=== PATIENT | male | born 1945 | race Caucasian/White ===

== ENCOUNTER 2018-10-08 16:46 | Observation (INO) ==
[2018-10-08 17:12] LABS: Hematocrit 38.7 % (42.0-52.0); Hemoglobin 11.4 gm/dL (13.5-18.0); Mean Cell Volume 93.7 fl (78-100); Mean Corpuscular Hemoglobin 27.6 pg (27-31); Mean Corpuscular Hgb Conc 29.5 g/dl (32-36); Mean Platelet Volume 11.5 fl (8-11.3); Neutrophil # 4.6 K/mm3 (1.3-6.0); Neutrophil % 61.1 % (42-75.0); Platelet Count 180 K/mm3 (150-450); Red Blood Count 4.13 M/mm3 (4.7-6.0); Red Cell Distribution Width 16.5 % (11.5-14.0); White Blood Count 7.6 K/mm3 (4.0-10.5)
[2018-10-08] MEDS ORDERED: FUROSEMIDE 10 MG/ML VIAL IV ONE (17:14)
[2018-10-08 17:31] LABS: BUN/Creatinine Ratio 27.6 (9.0-21.6); Blood Urea Nitrogen 45 mg/dL (6-23); Carbon Dioxide 26.4 mmol/L (24-32.6); Chloride 107 mmol/L (97-106); Glucose * 108 mg/dL (70-110); Potassium 4.4 mmol/L (3.4-4.6); Sodium 142 mmol/L (132-142)
[2018-10-08 17:32] LABS: ALT 69 U/L (19-67); AST 60 U/L (0-48); Albumin * 3.2 gm/dl (3.4-5.0); Alkaline Phosphatase * 81 U/L (50-170); BNP * 2273 pg/mL (5-350); Bilirubin, Total 0.4 mg/dL (0.0-1.1); Ca. Corrected For Albumin 9.2 mg/dL (8.4-10.2); Calcium * 8.9 mg/dL (7.9-10.9); Total Protein 6.5 gm/dL (6.2-8.2); Troponin I Less than 0.017 ng/mL (0.00-0.10)
--- NOTE | 2018-10-08 17:58 | ERNOTE ---
Dyspnea - General Presenting Symptoms: shortness of breath, wheezing, other Time Seen by Provider: 10/08/18 17:10 Source: patient - And about a 15 pound weight gain, family Exam Limitations: no limitations - Immun/Allergies/Home Medications Immunizations: IMMUNIZATION HX Immunizations Up to Date Yes History of Influenza Vaccine Yes Hx Pneumococcal Vaccination Yes Allergies/Adverse Reactions: Allergies No Known Drug Allergies Allergy (Verified 10/08/18 16:56) Home Medications: HOME MEDICATIONS Aspirin [Aspirin Enteric Coated] 81 mg PO DAILY 03/12/16 [Last Taken Unknown] amLODIPine BESYLATE [Norvasc] 5 mg PO DAILY 03/12/16 [Last Taken Unknown] atenolol 50 mg tablet 50 mg PO DAILY #90 tab 08/22/18 [Last Taken Unknown] clopidogrel 75 mg tablet 75 mg PO DAILY #90 tab 09/20/18 [Last Taken Unknown] losartan 100 mg tablet 100 mg PO DAILY #90 tab 09/20/18 [Last Taken Unknown] Furosemide [Lasix] 80 mg PO DAILY 10/05/18 [Last Taken Unknown] Rosuvastatin Calcium [Crestor] 40 mg PO HS 10/05/18 [Last Taken Unknown] - History of Present Illness Narrative: Patient was seen here 3 days ago appeared to be CHF and weight gain. His Lasix was increased at home however it did not help at all in his continuing to put on weight and is more short of breath and cannot lie flat. Despite aggressive treatment at home he has failed outpatient treatment. 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 Initiating event: Reports: none Frequency of episodes: Reports: occassional episodes Modifying Factors - (Improves): Reports: nothing Modifying Factors (Worsens): Reports: activity, lying down Associated Symptoms-Dyspnea: Reports: ankle/leg swelling Prior Treatment: Reports: recently seen, treated by physician Review of Systems - Review of Systems Constitutional: Present: See HPI EYE: Present: no symptoms reported ENT: Present: no symptoms reported Respiratory: Present: See HPI Cardiology: Present: edema Gastrointestinal/Abdominal: Present: no symptoms reported Genitourinary: Present: no symptoms reported Musculoskeletal: Present: no symptoms reported Skin: Present: no symptoms reported Neurological: Present: no symptoms reported Endocrine: Present: no symptoms reported Hematologic/Lymphatic: Present: no symptoms reported Psych: Present: no symptoms reported All Other Systems: All systems neg except as marked Medical History (Updated 10/05/18 @ 10:17 by Lyssa Ruiz MD) Aortic aneurysm CAD (coronary artery disease) CHF (congestive heart failure) COPD (chronic obstructive pulmonary disease) Hypercholesteremia Hypertension PAD (peripheral artery disease) Surgical History: Surgical History (Updated 10/05/18 @ 09:29 by Tonya Maria, RONDA) History of cardiac catheterization history of stent placement right leg Family History: Family History (Updated 10/08/18 @ 16:57 by Estela Wilkins, RONDA) Other No pertinent family history Social History: Preferred Language Tanzanian Smoking Status Never smoker Abuse History No History of abuse Psych History No pertinent hx (Last Updated 08/17/18 @ 20:52 by Maxim Marion DO) No Social History Section defined Physical Exam - Physical Exam General Appearance: Present: wd/wn, alert, moderate distress Head Exam: Present: normal inspection, no evidence of injury Eye Exam: Normal inspection: bilateral, PERRL: bilateral Ears, Nose, Throat: Present: normal ENT inspection, H, normal pharynx Neck: Present: normal inspection, nontender Respiratory: Present: no accessory muscle use, chest nontender, respiratory distress, crackles - In the bases Cardiovascular/Chest: Present: regular rate, rhythm, no murmur, normal per ipheral pulses Gastrointestinal/Abdominal: Present: normal bowel sounds, nontender, nondistended, soft, no organomegaly Rectal Exam: Present: deferred Back Exam: Present: normal inspection, normal range of motion Extremity Exam: Present: normal inspection, non-tender, normal range of motion, extremity edema, other - Presacral edema Neurological Exam: Present: alert, oriented, normal mood/affect Skin Exam: Present: normal color, warm/dry Lymphatic Exam: Present: no adenopathy Progress - Results and Orders Patient's Lab Results:: I have reviewed the patient's lab results. - Vital Signs Patient's Vital Signs:: I have reviewed the patient's vital signs. Vital Signs: Vital Signs 10/08/18 16:53 10/08/18 16:59 10/08/18 17:23 Temperature 37.1 C Pulse Rate 66 66 60 Respiratory Rate 20 Blood Pressure 136/55 129/54 O2 Sat by Pulse Oximetry 92 L - EKG EKG #1 EKG: NSR EKG read: Reviewed by me - X-Ray X-Ray #1 X-Ray: chest Interpretation: Reviewed by me - Progress/Reassessment Chief Complaint: Dyspnea Plan - Plan Plan: Patient is failed outpatient treatment and I believe he needs to come in for more aggressive IV diuresis. It is entirely possible that the Lasix is not working as well as it has in the past. I did give him an additional 80 mg of Lasix IV to see if we can stimulate more diuresis. Given the 15 pound weight gain we might even consider Zaroxolyn on the floor, however I will leave that to the discretion of the family practice doctor. Departure Clinical Impression: Congestive heart failure Qualifiers: Heart failure type: unspecified Heart failure chronicity: acute on chronic Qualified Code(s): I50.9 - Heart failure, unspecified - Departure Disposition: Still a patient Condition: Fair Referrals: Maxim Marion DO [Primary Care Provider] -
[2018-10-08] MEDS ORDERED: ENOXAPARIN SODIUM 40 MG/0.4 ML SYRG SC SCH (21:45)
--- NOTE | 2018-10-08 21:56 | HP ---
Chief Complaint - Chief Complaint Date of Service: 10/08/18 Time of Service: 21:00 Chief Complaint: Shortness of breath, orthopnea, hypoxemia History of Present Illness: Mr. Chow has been having fluid retention problems. He was started on f urosemide 40 mg p.o. but continued to gain fluid weight and became very dyspneic this evening and could not lie down because of shortness of breath. He came to the emergency room was evaluated and found to be in congestive heart failure. He was diuresed with 80 mg of furosemide IV and he has unloaded a lot of fluid. He is now breathing comfortably and is able to lie down without being short of breath. The head of his bed is raised about 15degrees. He otherwise is in no distress. His laboratory work shows an elevated BNP. Chest x-ray shows pulmonary vascular edema. He is admitted for further IV diuresis. Medical History (Updated 10/08/18 @ 17:58 by Pramod Robison DO) CHF (congestive heart failure) Aortic aneurysm CAD (coronary artery disease) COPD (chronic obstructive pulmonary disease) Hypercholesteremia Hypertension PAD (peripheral artery disease) Surgical History: Surgical History (Updated 10/05/18 @ 09:29 by Tonya Maria RN) History of cardiac catheterization history of stent placement right leg Family History: Family History (Updated 10/08/18 @ 16:57 by Estela Wilkins RN) Other No pertinent family history Social History: Patient Lives/Resources With Spouse Utilized Occupation [employer] Preferred Language [place] Do you have any orthodoxy or No cultural preference? Smoking Status Never smoker Have you smoked in the past 12 No months Do you dip or chew tobacco No Abuse History No History of abuse Psych History No pertinent hx (Last Updated 08/17/18 @ 20:52 by Maxim Marion DO) No Social History Section defined Review Of Systems (GEN) - Review of Systems Generalized/Overall Review: Present: Malaise EENTM: Present: No Symptoms Reported Respiratory: Present: Shortness of Breath, Orthopnea, Wheezing Cardiac: Present: No Symptoms Reported, Edema Abdominal: Present: Other - Increased abdominal girth Genitourinary: Present: No Symptoms Reported Musculoskeletal: Present: No Symptoms Reported Neurological: Present: No Symptoms Reported Skin: Present: No Symptoms Reported Endocrine: Present: No Symptoms Reported Immunizations: IMMUNIZATION HX Immunizations Up to Date Yes History of Influenza Vaccine Yes Hx Pneumococcal Vaccination Yes Allergies/Adverse Reactions: Allergies Allergy/AdvReac Type Severity Reaction Status Date / Time No Known Drug Allergies Allergy Verified 10/08/18 16:56 Home Medications: HOME MEDICATIONS Aspirin [Aspirin Enteric Coated] 81 mg PO DAILY 03/12/16 [Last Taken Unknown] amLODIPine BESYLATE [Norvasc] 5 mg PO DAILY 03/12/16 [Last Taken Unknown] atenolol 50 mg tablet 50 mg PO DAILY #90 tab 08/22/18 [Last Taken Unknown] clopidogrel 75 mg tablet 75 mg PO DAILY #90 tab 09/20/18 [Last Taken Unknown] losartan 100 mg tablet 100 mg PO DAILY #90 tab 09/20/18 [Last Taken Unknown] Furosemide [Lasix] 80 mg PO DAILY 10/05/18 [Last Taken Unknown] Rosuvastatin Calcium [Crestor] 40 mg PO HS 10/05/18 [Last Taken Unknown] Exam - Exam Vital Signs: Vital Signs - Last Taken Temp 36.4 C 10/08/18 19:12 Pulse 62 10/08/18 19:12 Resp 15 10/08/18 19:12 BP 148/55 10/08/18 19:12 Pulse Ox 95 10/08/18 19:12 Constitutional: Present: Alert, Oriented x3, Cooperative, Well developed, Well nourished, No distress ENT Exam: Present: normal ENT inspection, hearing grossly normal, pharynx normal, TMs normal Eye Exam: bilateral eye: normal inspection, PERRL, EOMI Neck: Present: non-tender, full range of motion, supple, other - Distended neck veins Back Exam: Present: normal inspection Breasts: Present: Exam deferred, Nontender Respiratory: Present: chest non-tender, rales, wheezing Cardiovascular/Chest: Present: normal peripheral pulses, regular rate, rhythm, no chest tenderness, JVD, systolic murmur - This is a low pitched grade 5/6 crescendo murmur consistent with mitral insufficiency., edema Peripheral Pulses: carotid (R): 2+, carotid (L): 2+, radial (R): 2+, radial (L): 2+ Abdomen: Present: Normal bowel sounds, soft, nontender /Rectal: Present: Exam deferred Extremity: Present: normal range of motion, lower extremity edema, swelling Skin Exam: Present: normal color, warm/dry, no cyanosis Lymphatic: Present: no adenopathy 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 Appearance: Present: appropriate appearance, appropriate insight, neat, no memory impairment Eye contact: Present: cooperative, good eye contact, normal speech Thoughts: Present: normal thought pattern, no apparent hallucination Diagnostic Studies: Abnormal Lab Results 10/08/18 10/08/18 Range/Units 17:06 17:06 RBC 4.13 L (4.7-6.0) M/mm3 Hgb 11.4 L (13.5-18.0) gm/dL Hct 38.7 L (42.0-52.0) % MCHC 29.5 L (32-36) g/dl RDW 16.5 H (11.5-14.0) % MPV 11.5 H (8-11.3) fl Eosinophils % 8.1 H (0.0-3.0) % Chloride 107 H (97-106) mmol/L BUN 45 H (6-23) mg/dL Creatinine 1.63 H (0.4-1.4) mg/dL Est GFR (Non-Af Amer) 44 L (60-130) mL/min BUN/Creatinine Ratio 27.6 H (9.0-21.6) AST 60 H (0-48) U/L ALT 69 H (19-67) U/L B-Natriuretic Peptide 2273 H (5-350) pg/mL Albumin 3.2 L (3.4-5.0) gm/dl Laboratory Results WBC 7.6 K/mm3 (4.0-10.5) 10/08/18 17:06 RBC 4.13 M/mm3 (4.7-6.0) L 10/08/18 17:06 Hgb 11.4 gm/dL (13.5-18.0) L 10/08/18 17:06 Hct 38.7 % (42.0-52.0) L 10/08/18 17:06 MCV 93.7 fl (78-100) 10/08/18 17:06 MCH 27.6 pg (27-31) 10/08/18 17:06 MCHC 29.5 g/dl (32-36) L 10/08/18 17:06 RDW 16.5 % (11.5-14.0) H 10/08/18 17:06 Plt Count 180 K/mm3 (150-450) 10/08/18 17:06 MPV 11.5 fl (8-11.3) H 10/08/18 17:06 Immature Gran % (Auto) 0.10 % (0.001-0.429) 10/08/18 17:06 Immature Gran # (Auto) 0.01 K/mm3 (0.000-0.0310) 10/08/18 17:06 61.1 % (42-75.0) 10/08/18 17:06 21.8 % (20-51) 10/08/18 17:06 8.4 % (0.0-9) 10/08/18 17:06 8.1 % (0.0-3.0) H 10/08/18 17:06 0.5 % (0.0-1.0) 10/08/18 17:06 Nucleated RBC % 0.0 k/mm3 (0-1) 10/08/18 17:06 4.6 K/mm3 (1.3-6.0) 10/08/18 17:06 1.66 k/mm3 (1.5-3.5) 10/08/18 17:06 0.6 k/mm3 (0.0-1.0) 10/08/18 17:06 0.6 k/mm3 (0.0-0.7) 10/08/18 17:06 Absolute Basophils 0.0 k/mm3 (0.0-0.1) 10/08/18 17:06 Sodium 142 mmol/L (132-142) 10/08/18 17:06 142 mmol/L (130-142) 10/08/18 17:06 Potassium 4.4 mmol/L (3.4-4.6) 10/08/18 17:06 Chloride 107 mmol/L (97-106) H 10/08/18 17:06 Carbon Dioxide 26.4 mmol/L (24-32.6) 10/08/18 17:06 13.0 mmol/L (6.8-13.8) 10/08/18 17:06 BUN 45 mg/dL (6-23) H 10/08/18 17:06 1.63 mg/dL (0.4-1.4) H 10/08/18 17:06 Est GFR (Non-Af Amer) 44 mL/min (60-130) L 10/08/18 17:06 27.6 (9.0-21.6) H 10/08/18 17:06 108 mg/dL (70-110) 10/08/18 17:06 Calcium 8.9 mg/dL (7.9-10.9) 10/08/18 17:06 Calcium Adj for Albumin 9.2 mg/dL (8.4-10.2) 10/08/18 17:06 Magnesium 2.2 mg/dL (1.2-2.8) 10/08/18 17:06 0.4 mg/dL (0.0-1.1) 10/08/18 17:06 AST 60 U/L (0-48) H 10/08/18 17:06 ALT 69 U/L (19-67) H 10/08/18 17:06 81 U/L (50-170) 10/08/18 17:06 Less than 0.017 ng/mL (0.00-0.10) 10/08/18 17:06 B-Natriuretic Peptide 2273 pg/mL (5-350) H 10/08/18 17:06 6.5 gm/dL (6.2-8.2) 10/08/18 17:06 3.2 gm/dl (3.4-5.0) L 10/08/18 17:06 Assessment/Plan - Narrative Narrative: 1. Monitor through the night continuously 2. Furosemide 40 mg IV push at [address] Marion of admission tomorrow morning 4. Morning lab ordered - Assessment/Plan (1) Congestive heart failure Problem: Acute Qualifiers: Heart failure chronicity: acute (2) Heart murmur Problem: Acute (3) COPD (chronic obstructive pulmonary disease) Problem: Chronic Qualifiers: COPD type: unspecified COPD
[2018-10-09] MEDS: FUROSEMIDE 10 MG/ML VIAL IV SCH ×2 (05:22→08:28)
[2018-10-09 06:11] LABS: Hematocrit 38.2 % (42.0-52.0); Hemoglobin 11.6 gm/dL (13.5-18.0); Mean Cell Volume 93.6 fl (78-100); Mean Corpuscular Hemoglobin 28.4 pg (27-31); Mean Corpuscular Hgb Conc 30.4 g/dl (32-36); Mean Platelet Volume 11.5 fl (8-11.3); Neutrophil # 4.5 K/mm3 (1.3-6.0); Neutrophil % 59.8 % (42-75.0); Platelet Count 161 K/mm3 (150-450); Red Blood Count 4.08 M/mm3 (4.7-6.0); Red Cell Distribution Width 16.4 % (11.5-14.0); White Blood Count 7.5 K/mm3 (4.0-10.5)
[2018-10-09 06:25] LABS: Albumin * 3.3 gm/dl (3.4-5.0); Anion Gap 12.4 mmol/L (6.8-13.8); Bilirubin, Total 0.5 mg/dL (0.0-1.1); Ca. Corrected For Albumin 8.9 mg/dL (8.4-10.2); Calcium * 8.7 mg/dL (7.9-10.9); Carbon Dioxide 28.7 mmol/L (24-32.6); Potassium 4.1 mmol/L (3.4-4.6); Total Protein 6.7 gm/dL (6.2-8.2)
[2018-10-09 07:11] LABS: BUN/Creatinine Ratio 29.4 (9.0-21.6)
[2018-10-09] MEDS: LOSARTAN POTASSIUM 50 MG TABLET PO SCH ×2 (08:20→08:41)
[2018-10-09] MEDS ORDERED: ASPIRIN 81 MG TABLET.DR PO SCH (09:00)
[2018-10-09] MEDS ORDERED: amLODIPine BESYLATE 5 MG TABLET PO SCH (09:00)
[2018-10-09] MEDS ORDERED: CLOPIDOGREL BISULFATE 75 MG TABLET PO SCH (09:00)
[2018-10-09] MEDS ORDERED: ATENOLOL 50 MG TABLET PO SCH (09:00)
--- NOTE | 2018-10-09 12:44 | DS ---
(1) Acute on chronic diastolic (congestive) heart failure Problem: Acute Description of Stay: Guille is a 73 yo male admitted for acute on chronic diastolic CHF. He was not diuresing at home with his oral lasix. He was admitted and given IV lasix which helped with diuresis. He is feeling better and ready for home discharge. I will change him to bumex to see if this works better than his lasix. He also reports difficulty sleeping will give him a prescription for sleeping medication. Procedures Performed: none Results and Findings: Lab Pending Results 10/08/18 17:06: WBC 7.6, RBC 4.13 L, Hgb 11.4 L, Hct 38.7 L, MCV 93.7, MCH 27.6, MCHC 29.5 L, RDW 16.5 H, Plt Count 180, MPV 11.5 H, Immature Gran % (Auto) 0.10, Immature Gran # (Auto) 0.01, Neutrophils % 61.1, Lymphocytes % 21.8, Monocytes % 8.4, Eosinophils % 8.1 H, Basophils % 0.5, Nucleated RBC % 0.0, Neutrophils # 4.6, Lymphocytes # 1.66, Monocytes # 0.6, Eosinophils # 0.6, Absolute Basophils 0.0 10/08/18 17:06: Sodium 142, Plasma Sodium 142, Potassium 4.4, Chloride 107 H, Carbon Dioxide 26.4, Anion Gap 13.0, BUN 45 H, Creatinine 1.63 H, Est GFR (Non- Af Amer) 44 L, BUN/Creatinine Ratio 27.6 H, Random Glucose 108, Calcium 8.9, Calcium Adj for Albumin 9.2, Total Bilirubin 0.4, AST 60 H, ALT 69 H, Alkaline Phosphatase 81, Troponin I Less than 0.017, B-Natriuretic Peptide 2273 H, Total Protein 6.5, Albumin 3.2 L 10/08/18 17:06: Magnesium 2.2 10/09/18 05:55: WBC 7.5, RBC 4.08 L, Hgb 11.6 L, Hct 38.2 L, MCV 93.6, MCH 28.4, MCHC 30.4 L, RDW 16.4 H, Plt Count 161, MPV 11.5 H, Immature Gran % (Auto) 0.10, Immature Gran # (Auto) 0.01, Neutrophils % 59.8, Lymphocytes % 22.1, Monocytes % 9.1 H, Eosinophils % 8.4 H, Basophils % 0.5, Nucleated RBC % 0.0, Neutrophils # 4.5, Lymphocytes # 1.66, Monocytes # 0.7, Eosinophils # 0.6, Absolute Basophils 0.0 10/09/18 05:55: Sodium 145 H, Plasma Sodium 145 H, Potassium 4.1, Chloride 108 H, Carbon Dioxide 28.7, Anion Gap 12.4, BUN 45 H, Creatinine 1.53 H, Est GFR (Non-Af Amer) 48 L, BUN/Creatinine Ratio 29.4 H, Random Glucose 111 H, Calcium 8.7, Calcium Adj for Albumin 8.9, Total Bilirubin 0.5, AST 57 H, ALT 68 H, Al kaline Phosphatase 84, Total Protein 6.7, Albumin 3.3 L Discharge Location: Home Disposition: Home self-care Condition: Fair Discharge Activity: Activity as tolerated Discharge Diet: Low salt Referrals: Maxim Marion DO [Primary Care Provider] - One Week Problem Oriented Discharge Instructions to Patient/Family: CHF Patient Instructions Additional Patient Instructions (free text): -Please make TCM appointment unless shelter discharge. Thank you! Xena @ [phone]. Prescriptions (Any new or edited meds): Bumetanide [Bumex] 1 mg PO DAILY #30 tab traZODone HCL [Desyrel] 50 mg PO HS #30 tab Complete Home Medications List: Complete Home Medication List: Aspirin [Aspirin Enteric Coated] 81 mg PO DAILY 03/12/16 amLODIPine BESYLATE [Norvasc] 5 mg PO DAILY 03/12/16 atenolol 50 mg tablet 50 mg PO DAILY #90 tab 08/22/18 clopidogrel 75 mg tablet 75 mg PO DAILY #90 tab 09/20/18 losartan 100 mg tablet 100 mg PO DAILY #90 tab 09/20/18 Rosuvastatin Calcium [Crestor] 40 mg PO HS 10/05/18 Bumetanide [Bumex] 1 mg PO DAILY #30 tab 10/09/18 traZODone HCL [Desyrel] 50 mg PO HS #30 tab 10/09/18
[2018-10-09 14:12] VITALS: BP 133/54
[2018-10-09] MEDS ORDERED: ROSUVASTATIN CALCIUM 20 MG TABLET PO SCH (21:00)
--- NOTE | 2018-10-11 07:51 | ECHO ---
This report is available in the EMR
== END 2018-10-09 13:30 | disposition home or self-care (01) ==
LOC: ER 16:46 → MS 16:46
PROVIDERS: ADMIT Family Medicine; ATTEND Family Medicine
DX: I50.33 Acute on chronic diastolic (congestive) heart failure
CPT/HCPCS: 36415; 71020; 71046; 80053; 83519; 83735; 83880; 84484; 85025; 93005; 93306; 96374; 96375; 99285; G0378

== ENCOUNTER 2019-04-17 12:36 | Observation (INO) ==
--- NOTE | 2019-04-17 12:54 | ERNOTE ---
Date of Service: 04/17/19 Time Seen by Provider: 04/17/19 12:38 Stated Complaint: cough, coughing up stuff Presenting Symptoms:: cough Source: patient, family - present Exam Limitations: no limitations Immunizations: IMMUNIZATION HX Immunizations Up to Date Yes History of Influenza Vaccine No Hx Pneumococcal Vaccination No Allergies/Adverse Reactions: Allergies No Known Drug Allergies Allergy (Verified 04/17/19 15:00) Home Medications: HOME MEDICATIONS Aspirin [Aspirin Enteric Coated] 81 mg PO DAILY 03/12/16 [Last Taken 04/15/19] atenolol 50 mg tablet 50 mg PO DAILY #90 tab 08/22/18 [Last Taken 04/15/19] losartan 100 mg tablet 100 mg PO DAILY #90 tab 09/20/18 [Last Taken 04/15/19] Rosuvastatin Calcium [Crestor] 40 mg PO HS 10/05/18 [Last Taken 04/15/19] amlodipine 5 mg tablet 5 mg PO DAILY #90 tab 12/13/18 [Last Taken 04/15/19] Clopidogrel Bisulfate [Plavix] 75 mg PO DAILY 04/17/19 [Last Taken 04/15/19] Furosemide [Lasix] 20 mg PO DAILY 04/17/19 [Last Taken 04/15/19] - Pain Score Pain Score #1 Pain Score: 0 - History of Present Ilness Narrative: The patient is a 74 year old male who presents for dyspnea which has been present for 1 week with worsening symptoms for 2 days. There are associated symptoms of edema and fatigue. The patient denies pain. There are no alleviating factors. There are aggravating factors of activity. Previous treatments have included: none. The past medical history includes: hypercholesterolemia, CAD, HTN, CHF, COPD, PAD and aortic aneurysm. The social history is negative. The patient has had no ill contacts. Patient states at his last visit with PCP his Lasix was changed to titration with need so he has been using 80mg po daily for the past few weeks. Patient states he developed productive cough 2 weeks ago but 2 days ago had increased fatigue, decreased appetite and increased dyspnea with exertion. Review of Systems - Review of Systems Constitutional: Present: fatigue. Absent: fever, chills EYE: Present: no symptoms reported ENT: Present: no symptoms reported. Absent: ear pain, nasal drainage, sore throat Respiratory: Present: shortness of breath, cough Cardiology: Present: edema. Absent: chest pain Gastrointestinal/Abdominal: Present: eating less, drinking less. Absent: nausea, vomiting, diarrhea, abdominal pain Genitourinary: Present: no symptoms reported. Absent: dysuria, decreased urinary output Musculoskeletal: Present: no symptoms reported Skin: Present: no symptoms reported Neurological: Present: no symptoms reported All Other Systems: All systems neg except as marked Medical History (Last Reviewed 04/17/19 @ 12:49 by MILY Irving) Aortic aneurysm CAD (coronary artery disease) CHF (congestive heart failure) COPD (chronic obstructive pulmonary disease) Hypercholesteremia Hypertension PAD (peripheral artery disease) Surgical History: Surgical History (Last Reviewed 04/17/19 @ 12:49 by MILY Irving) History of cardiac catheterization history of stent placement right leg Family History: Family History (Last Reviewed 04/17/19 @ 12:49 by MILY Irving) Other No pertinent family history Social History: (Last Reviewed 04/17/19 @ 12:49 by MILY Irving) Social History: adopted: No jail: No Marital status: household members: spouse number of children: 3 current occupational status: retired Previous occupational history: [employer] Highest education level completed: high school graduate Financial difficulty paying for basics: not very hard Service: No Tobacco: Smoking Status: Never smoker Alcohol: alcohol intake: never Substance Use: substance use type: does not use Dietary Habits: caffeine: Yes Type: coffee, tea Lizz/Sabianist: special lizz needs: No Physical Exam - Physical Exam General Appearance: Present: wd/wn, alert, mild distress, other - malaise Head Exam: Present: normal inspection, no evidence of injury Eye Exam: Normal inspection: bilateral Neck: Present: normal inspection Respiratory: Present: no respiratory distress, accessory muscle use, decreased breath sounds, wheezing - expiratory Cardiovascular/Chest: Present: extra beats, systolic murmur Gastrointestinal/Abdominal: Present: normal bowel sounds, nontender, soft, no organomegaly, distended Extremity Exam: Present: extremity edema - 3+ pitting bilteral extremities Neurological Exam: Present: alert, oriented, normal mood/affect, no motor/sensory deficits Skin Exam: Present: normal color, warm/dry Progress - Date and Time Seen: Date and Time: 04/17/[address]Marion, will admit for CHF. To administer Lasix 40mg IVP now and plan to recheck labs tomorrow. - Results and Orders Patient's Lab Results:: I have reviewed the patient's lab results. - Vital Signs Patient's Vital Signs:: I have reviewed the patient's vital signs. Vital Signs: Vital Signs 04/17/19 12:36 Temperature 36.9 C Pulse Rate 82 Respiratory Rate 16 Blood Pressure 154/89 H O2 Sat by Pulse Oximetry 100 - EKG EKG #1 EKG: NSR - first degree AV block, rate 76, nonspecific ST T wave changes, unchanged from - 10/08/18, other - left anterior fascicular block EKG read: Reviewed by me - X-Ray X-Ray #1 X-Ray: chest Interpretation: Reviewed by me X-ray Comments: IMPRESSION: 1. Hypoventilatory changes. 2. No definite new consolidation. 3. Stable cardiomegaly. 4. Increased vascular markings noted. Consider vascular crowding from hypoventilatory changes, versus potential pulmonary venous congestion. Electronically signed by Chris Grey M.D.. - Progress/Reassessment Chief Complaint: Cough Departure Clinical Impression: CHF (congestive heart failure) Qualifiers: Heart failure type: unspecified Heart failure chronicity: acute on chronic Qualified Code(s): I50.9 - Heart failure, unspecified - Departure Disposition: Still a patient Condition: Good
[2019-04-17 13:21] LABS: Hematocrit 36.6 % (42.0-52.0); Hemoglobin 11.2 gm/dL (13.5-18.0); Mean Cell Volume 91.5 fl (78-100); Mean Corpuscular Hgb Conc 30.6 g/dl (32-36); Mean Platelet Volume 10.9 fl (8-11.3); Neutrophil # 4.8 K/mm3 (1.3-6.0); Neutrophil % 70.7 % (42-75.0); Platelet Count 192 K/mm3 (150-450); Red Cell Distribution Width 15.9 % (11.5-14.0); White Blood Count 6.8 K/mm3 (4.0-10.5)
[2019-04-17 13:34] LABS: Prothrombin Time (Patient) 11.9 Seconds (9.1-10.7)
[2019-04-17 13:37] LABS: INR 1.21 INR (0.92-1.08); Partial Thrombolplastin Time 25.9 Seconds (24-32)
[2019-04-17 13:41] LABS: Troponin I Less than 0.017 ng/mL (0.00-0.10)
[2019-04-17 13:42] LABS: ALT 64 U/L (19-67); AST 51 U/L (0-48); Albumin * 3.1 gm/dl (3.4-5.0); Alkaline Phosphatase * 98 U/L (50-170); Anion Gap 11.9 mmol/L (6.8-13.8); BNP * 4515 pg/mL (5-650); Bilirubin, Total 0.4 mg/dL (0.0-1.1); Blood Urea Nitrogen 19 mg/dL (6-23); Ca. Corrected For Albumin 9.3 mg/dL (8.4-10.2); Calcium * 8.9 mg/dL (7.9-10.9); Carbon Dioxide 25.5 mmol/L (24-32.6); Chloride 107 mmol/L (97-106); Glucose * 116 mg/dL (70-110); Potassium 4.4 mmol/L (3.4-4.6); Sodium 140 mmol/L (132-142); Total Protein 6.6 gm/dL (6.2-8.2)
[2019-04-17] MEDS ORDERED: FUROSEMIDE 10 MG/ML VIAL IV ONE ×2 (14:06→19:00)
--- NOTE | 2019-04-17 18:04 | HP ---
Chief Complaint - Chief Complaint Date of Service: 04/17/19 Time of Service: 18:03 Chief Complaint: Shortness of breath History of Present Illness: Guille is a 74 yo male that presented to the [facility] ER with shortness of breath. Chest xray revealed pulmonary congestion, BNP was 4000, and he had 3+ lower extremity edema. He has known diastolic chf and is on lasix. He takes 80g PO daily, but has previously been on 80mg twice a day. This was not changed recently. He reports no change in diet, activity, or medications recently. 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 He denies chest pain. Medical History (Last Reviewed 04/17/19 @ 14:59 by Homer Thorpe RN) CHF (congestive heart failure) Aortic aneurysm CAD (coronary artery disease) COPD (chronic obstructive pulmonary disease) Hypercholesteremia Hypertension PAD (peripheral artery disease) Surgical History: Surgical History (Last Reviewed 04/17/19 @ 14:59 by Homer Thorpe RN) History of cardiac catheterization history of stent placement right leg Family History: Family History (Last Reviewed 04/17/19 @ 14:59 by Homer Thorpe RN) Other No pertinent family history Social History: (Last Reviewed 04/17/19 @ 14:59 by Homer Thorpe RN) Social History: adopted: No shelter: No Marital status: household members: spouse number of children: 3 current occupational status: retired Previous occupational history: [employer] Highest education level completed: high school graduate Financial difficulty paying for basics: not very hard Service: No Tobacco: Smoking Status: Never smoker Alcohol: alcohol intake: never Substance Use: substance use type: does not use Dietary Habits: caffeine: Yes Type: coffee, tea Lizz/Yarsani: special lizz needs: No Review Of Systems (GEN) - Review of Systems Generalized/Overall Review: Absent: Weakness, Chills, Fever EENTM: Present: No Symptoms Reported Respiratory: Present: Cough, Shortness of Breath Cardiac: Present: Edema. Absent: Chest Pain, Palpitations Abdominal: Absent: Nausea, Vomiting Genitourinary: Present: No Symptoms Reported Musculoskeletal: Present: Joint Pain, Back Pain Neurological: Present: No Symptoms Reported Skin: Present: No Symptoms Reported Immunizations: IMMUNIZATION HX Immunizations Up to Date Yes History of Influenza Vaccine No Hx Pneumococcal Vaccination No Allergies/Adverse Reactions: Allergies Allergy/AdvReac Type Severity Reaction Status Date / Time No Known Drug Allergies Allergy Verified 04/17/19 15:00 Home Medications: HOME MEDICATIONS Aspirin [Aspirin Enteric Coated] 81 mg PO DAILY 03/12/16 [Last Taken 04/15/19] atenolol 50 mg tablet 50 mg PO DAILY #90 tab 08/22/18 [Last Taken 04/15/19] losartan 100 mg tablet 100 mg PO DAILY #90 tab 09/20/18 [Last Taken 04/15/19] Rosuvastatin Calcium [Crestor] 40 mg PO HS 10/05/18 [Last Taken 04/15/19] amlodipine 5 mg tablet 5 mg PO DAILY #90 tab 12/13/18 [Last Taken 04/15/19] Clopidogrel Bisulfate [Plavix] 75 mg PO DAILY 04/17/19 [Last Taken 04/15/19] Furosemide [Lasix] 20 mg PO DAILY 04/17/19 [Last Taken 04/15/19] Exam - Exam Vital Signs: Vital Signs - Last Taken Temp 36.4 C 04/17/19 15:21 Pulse 80 04/17/19 15:21 Resp 22 H 04/17/19 15:21 BP 150/73 H 04/17/19 15:21 Pulse Ox 98 04/17/19 15:21 Constitutional: Present: Alert, Oriented x3, Cooperative ENT Exam: Present: hearing grossly normal Eye Exam: bilateral eye: normal inspection Respiratory: Present: lungs clear, normal breath sounds Cardiovascular/Chest: Present: regular rate, rhythm, systolic murmur - 3+ Peripheral Pulses: radial (R): 2+, radial (L): 2+ Abdomen: Present: Normal bowel sounds, soft, nontender, nondistended Extremity: Present: lower extremity edema - 3+ Skin Exam: Present: normal color, warm/dry, no cyanosis Lymphatic: Present: no adenopathy Neurologic: Present: alert, normal mood/affect, oriented x 3 Appearance: Present: appropriate appearance, appropriate insight Eye contact: Present: cooperative, good eye contact, normal speech Thoughts: Present: normal thought pattern, no apparent hallucination Diagnostic Studies: Abnormal Lab Results 04/17/19 04/17/19 04/17/19 Range/Units 12:47 12:47 12:47 RBC 4.00 L (4.7-6.0) M/mm3 Hgb 11.2 L (13.5-18.0) gm/dL Hct 36.6 L (42.0-52.0) % MCHC 30.6 L (32-36) g/dl RDW 15.9 H (11.5-14.0) % Lymphocytes % 14.9 L (20-51) % Eosinophils % 6.2 H (0.0-3.0) % Lymphocytes # 1.01 L (1.5-3.5) k/mm3 PT 11.9 H (9.1-10.7) Seconds INR (Anticoag Therapy) 1.21 H (0.92-1.08) INR Chloride 107 H (97-106) mmol/L Random Glucose 116 H (70-110) mg/dL AST 51 H (0-48) U/L B-Natriuretic Peptide 4515 H (5-650) pg/mL Albumin 3.1 L (3.4-5.0) gm/dl Laboratory Results WBC 6.8 K/mm3 (4.0-10.5) 04/17/19 12:47 RBC 4.00 M/mm3 (4.7-6.0) L 04/17/19 12:47 Hgb 11.2 gm/dL (13.5-18.0) L 04/17/19 12:47 Hct 36.6 % (42.0-52.0) L 04/17/19 12:47 MCV 91.5 fl (78-100) 04/17/19 12:47 MCH 28.0 pg (27-31) 04/17/19 12:47 MCHC 30.6 g/dl (32-36) L 04/17/19 12:47 RDW 15.9 % (11.5-14.0) H 04/17/19 12:47 Plt Count 192 K/mm3 (150-450) 04/17/19 12:47 MPV 10.9 fl (8-11.3) 04/17/19 12:47 Immature Gran % (Auto) 0.30 % (0.001-0.429) 04/17/19 12:47 Immature Gran # (Auto) 0.02 K/mm3 (0.000-0.0310) 04/17/19 12:47 Neutrophils % 70.7 % (42-75.0) 04/17/19 12:47 Lymphocytes % 14.9 % (20-51) L 04/17/19 12:47 Monocytes % 7.5 % (0.0-9) 04/17/19 12:47 Eosinophils % 6.2 % (0.0-3.0) H 04/17/19 12:47 Basophils % 0.4 % (0.0-1.0) 04/17/19 12:47 Nucleated RBC % 0.0 k/mm3 (0-1) 04/17/19 12:47 Neutrophils # 4.8 K/mm3 (1.3-6.0) 04/17/19 12:47 Lymphocytes # 1.01 k/mm3 (1.5-3.5) L 04/17/19 12:47 Monocytes # 0.5 k/mm3 (0.0-1.0) 04/17/19 12:47 Eosinophils # 0.4 k/mm3 (0.0-0.7) 04/17/19 12:47 Absolute Basophils 0.0 k/mm3 (0.0-0.1) 04/17/19 12:47 PT 11.9 Seconds (9.1-10.7) H 04/17/19 12:47 INR (Anticoag Therapy) 1.21 INR (0.92-1.08) H 04/17/19 12:47 PTT (Bridget) 25.9 Seconds (24-32) 04/17/19 12:47 Sodium 140 mmol/L (132-142) 04/17/19 12:47 Plasma Sodium 140 mmol/L (130-142) 04/17/19 12:47 Potassium 4.4 mmol/L (3.4-4.6) 04/17/19 12:47 Chloride 107 mmol/L (97-106) H 04/17/19 12:47 Carbon Dioxide 25.5 mmol/L (24-32.6) 04/17/19 12:47 Anion Gap 11.9 mmol/L (6.8-13.8) 04/17/19 12:47 BUN 19 mg/dL (6-23) D 04/17/19 12:47 Creatinine 1.00 mg/dL (0.4-1.4) 04/17/19 12:47 Est GFR (Non-Af Amer) 77 mL/min (60-130) D 04/17/19 12:47 BUN/Creatinine Ratio 19.0 (9.0-21.6) 04/17/19 12:47 Random Glucose 116 mg/dL (70-110) H 04/17/19 12:47 Calcium 8.9 mg/dL (7.9-10.9) 04/17/19 12:47 Calcium Adj for Albumin 9.3 mg/dL (8.4-10.2) 04/17/19 12:47 Total Bilirubin 0.4 mg/dL (0.0-1.1) 04/17/19 12:47 AST 51 U/L (0-48) H 04/17/19 12:47 ALT 64 U/L (19-67) 04/17/19 12:47 Alkaline Phosphatase 98 U/L (50-170) 04/17/19 12:47 Troponin I Less than 0.017 ng/mL (0.00-0.10) 04/17/19 12:47 B-Natriuretic Peptide 4515 pg/mL (5-650) H 04/17/19 12:47 Total Protein 6.6 gm/dL (6.2-8.2) 04/17/19 12:47 Albumin 3.1 gm/dl (3.4-5.0) L 04/17/19 12:47 Assessment/Plan - Narrative Narrative: Guille is a 74 yo male with acute on chronic diastolic CHF. He has increased edema, shortness of breath, elevated BNP from his baseline, and pulmon isr[place] edema on chest xray. He will be diuresed with lasix 40mg IV about every 6 hours prn. He has no evidence of acute respiratory failure at this time. Will therefore admit to observation. Will plan to diurese and if feeling better tomorrow will discharge to home. May consider changing lasix to 80mg daily and BID 3 days a week to find a balance to keep excessive fluid from building up over time. - Assessment/Plan (1) Acute on chronic diastolic (congestive) heart failure Problem: Acute
[2019-04-17] MEDS ORDERED: ROSUVASTATIN CALCIUM 10 MG TABLET ONE (19:48)
[2019-04-17] MEDS ORDERED: ROSUVASTATIN CALCIUM 20 MG TABLET PO SCH (21:00)
[2019-04-18] MEDS ORDERED: CLOPIDOGREL BISULFATE 75 MG TABLET PO SCH (09:00)
[2019-04-18] MEDS ORDERED: ATENOLOL 50 MG TABLET PO SCH (09:00)
[2019-04-18] MEDS ORDERED: LOSARTAN POTASSIUM 50 MG TABLET PO SCH (09:00)
[2019-04-18] MEDS ORDERED: FLU VACC QS2019-20(6MOS UP)/PF 60 MCG/0.5 ML SYRINGE IM ONE (09:00)
[2019-04-18] MEDS ORDERED: amLODIPine BESYLATE 5 MG TABLET PO SCH (09:00)
[2019-04-18] MEDS ORDERED: ASPIRIN 81 MG TABLET.DR PO SCH (09:00)
--- NOTE | 2019-04-18 09:24 | DS ---
(1) Acute on chronic diastolic (congestive) heart failure Problem: Acute Date of Discharge:: 04/18/19 Description of Stay: Jacob is a 74 yo male with Chronic Diastolic CHF that was admitted for acute exacerbation based on shortness of breath, increased lower extremity edema, elevated BNP of 4000 (baseline of 1000), and pulmonary congestion on chest xray. He was treated with IV lasix for diuresis and improved. Today his breathing is improved and his lower extremity edema is significantly improved. He feels ready to go home. I will plan to increase lasix from once a day every day to an additional second dose three days a week. Procedures Performed: none Results and Findings: Lab Pending Results 04/17/19 12:47: WBC 6.8, RBC 4.00 L, Hgb 11.2 L, Hct 36.6 L, MCV 91.5, MCH 28.0, MCHC 30.6 L, RDW 15.9 H, Plt Count 192, MPV 10.9, Immature Gran % (Auto) 0.30, Immature Gran # (Auto) 0.02, Neutrophils % 70.7, Lymphocytes % 14.9 L, Monocytes % 7.5, Eosinophils % 6.2 H, Basophils % 0.4, Nucleated RBC % 0.0, Neutrophils # 4.8, Lymphocytes # 1.01 L, Monocytes # 0.5, Eosinophils # 0.4, Absolute Basophils 0.0 04/17/19 12:47: PT 11.9 H, INR (Anticoag Therapy) 1.21 H, PTT (Bridget) 25.9 04/17/19 12:47: Sodium 140, Plasma Sodium 140, Potassium 4.4, Chloride 107 H, Carbon Dioxide 25.5, Anion Gap 11.9, BUN 19 D, Creatinine 1.00, Est GFR (Non-Af Amer) 77 D, BUN/Creatinine Ratio 19.0, Random Glucose 116 H, Calcium 8.9, Calcium Adj for Albumin 9.3, Total Bilirubin 0.4, AST 51 H, ALT 64, Alkaline Phosphatase 98, Troponin I Less than 0.017, B-Natriuretic Peptide 4515 H, Total Protein 6.6, Albumin 3.1 L Discharge Location: Home Disposition: Home self-care Condition: Good Discharge Activity: Activity as tolerated Discharge Diet: Low salt Referrals: Maxim Marion DO [Primary Care Provider] - One Week Problem Oriented Discharge Instructions to Patient/Family: CHF Patient Instructions Prescriptions (Any new or edited meds): Furosemide [Lasix] 80 mg PO DAILY #40 tab Complete Home Medications List: Complete Home Medication List: Aspirin [Aspirin Enteric Coated] 81 mg PO DAILY 03/12/16 atenolol 50 mg tablet 50 mg PO DAILY #90 tab 08/22/18 losartan 100 mg tablet 100 mg PO DAILY #90 tab 09/20/18 Rosuvastatin Calcium [Crestor] 40 mg PO HS 10/05/18 amlodipine 5 mg tablet 5 mg PO DAILY #90 tab 12/13/18 Clopidogrel Bisulfate [Plavix] 75 mg PO DAILY 04/17/19 Furosemide [Lasix] 80 mg PO DAILY #40 tab 04/18/19
[2019-04-18 09:40] VITALS: BP 146/69
== END 2019-04-18 10:30 | disposition home or self-care (01) ==
LOC: ER 12:36 → MS 12:36
PROVIDERS: ADMIT Family Medicine; ATTEND Family Medicine
CPT/HCPCS: 36415; 71020; 71046; 80053; 83519; 83880; 84484; 85025; 85610; 85730; 90686; 93005; 96374; 96375; 99285; G0008; G0378

== ENCOUNTER 2019-06-18 04:00 | Observation (INO) ==
--- NOTE | 2019-06-18 04:18 | ERNOTE ---
Dyspnea - General Presenting Symptoms: shortness of breath Time Seen by Provider: 06/18/19 04:14 Source: patient, family Exam Limitations: no limitations - Immun/Allergies/Home Medications Immunizations: IMMUNIZATION HX Immunizations Up to Date Yes History of Influenza Vaccine Yes Hx Pneumococcal Vaccination More Information Required Allergies/Adverse Reactions: Allergies No Known Drug Allergies Allergy (Verified 06/18/19 04:08) Home Medications: HOME MEDICATIONS Aspirin [Aspirin Enteric Coated] 81 mg PO DAILY 03/12/16 [Last Taken 04/15/19] atenolol 50 mg tablet 50 mg PO DAILY #90 tab 08/22/18 [Last Taken 04/15/19] losartan 100 mg tablet 100 mg PO DAILY #90 tab 09/20/18 [Last Taken 04/15/19] Rosuvastatin Calcium [Crestor] 40 mg PO HS 10/05/18 [Last Taken 04/15/19] amlodipine 5 mg tablet 5 mg PO DAILY #90 tab 12/13/18 [Last Taken 04/15/19] Clopidogrel Bisulfate [Plavix] 75 mg PO DAILY 04/17/19 [Last Taken 04/15/19] furosemide 80 mg tablet 80 mg PO DAILY tab 04/25/19 [Last Taken Unknown] hydroxyzine HCl 25 mg tablet 25 mg PO Q8H PRN #90 tab 04/25/19 [Last Taken Unknown] sertraline 50 mg tablet 50 mg PO DAILY #30 tab 04/25/19 [Last Taken Unknown] indomethacin 50 mg capsule 50 - 100 mg PO BID PRN #90 cap 05/02/19 [Last Taken Unknown] - History of Present Illness Narrative: Patient states started getting more short of breath over his baseline approximately Tuesday of last week. His says he been trying to get him to come in to be seen and finally this morning he felt short of breath enough to come in Severity: moderate Initiating event: Reports: unknown Frequency of episodes: Reports: occassional episodes Review of Systems - Review of Systems Constitutional: Absent: recent illness, fever ENT: Absent: nose congestion, nasal drainage Respiratory: Present: See HPI, wheezing Cardiology: Present: edema - no more than usual. Absent: chest pain Gastrointestinal/Abdominal: Absent: nausea, vomiting Genitourinary: Absent: frequency, decreased urinary output Musculoskeletal: Absent: back pain, muscle pain Skin: Absent: rash Neurological: Absent: dizziness/light-headedness Endocrine: Absent: excessive sweating Medical History (Last Reviewed 06/18/19 @ 04:50 by Fahad Mendoza DO) CHF (congestive heart failure) Onset Date: Unknown Aortic aneurysm Onset Date: Unknown CAD (coronary artery disease) Onset Date: Unknown COPD (chronic obstructive pulmonary disease) Onset Date: Unknown Hypercholesteremia Onset Date: Unknown Hypertension Onset Date: Unknown PAD (peripheral artery disease) Onset Date: Unknown Surgical History: Surgical History (Last Reviewed 06/18/19 @ 04:50 by Fahad Mendoza DO) History of cardiac catheterization Onset Date: Unknown history of stent placement Onset Date: Unknown right leg Family History: Family History (Last Reviewed 06/18/19 @ 04:50 by Fahad Mendoza DO) Other No pertinent family history Social History: (Last Reviewed 06/18/19 @ 04:51 by Fahad Mendoza DO) Social History: adopted: No half-way: No Marital status: household members: spouse number of children: 3 current occupational status: retired Previous occupational history: Highest education level completed: high school graduate Financial difficulty paying for basics: not very hard Service: No Tobacco: Smoking Status: Never smoker Alcohol: alcohol intake: never Substance Use: substance use type: does not use Dietary Habits: caffeine: Yes Type: coffee, tea Lizz/Scientologist: special lizz needs: No Physical Exam - Physical Exam General Appearance: Present: wd/wn, alert, mild distress Head Exam: Present: normal inspection, no evidence of injury Ears, Nose, Throat: Present: normal ENT inspection Neck: Present: normal inspection, nontender Respiratory: Present: no respiratory distress, wheezing Cardiovascular/Chest: Present: regular rate, rhythm, no murmur Back Exam: Present: normal inspection, normal range of motion Extremity Exam: Present: normal inspection, normal range of motion, extremity edema Neurological Exam: Present: alert, oriented, normal mood/affect Skin Exam: Present: normal color, warm/dry Lymphatic Exam: Present: no adenopathy Progress - Results and Orders Patient's Lab Results:: I have reviewed the patient's lab results. Results and Orders: Laboratory Tests 06/18/19 06/18/19 04:35 04:35 WBC 5.5 Hgb 10.1 L Hct 33.8 L Plt Count 150 Sodium 138 Potassium 4.1 Chloride 103 Carbon Dioxide 26.3 BUN 62 H D Creatinine 1.54 H Random Glucose 124 H Calcium 8.5 Total Bilirubin 0.3 AST 95 H ALT 100 H Alkaline Phosphatase 87 Troponin I 0.053 B-Natriuretic Peptide 3482 H - Vital Signs Patient's Vital Signs:: I have reviewed the patient's vital signs. Vital Signs: Vital Signs 06/18/19 04:00 Temperature 36.9 C Pulse Rate 79 Respiratory Rate 20 Blood Pressure 143/72 O2 Sat by Pulse Oximetry 97 - EKG EKG #1 EKG: NSR - With first-degree block, other - There are no ST changes but there are some flipped T waves anteriorly EKG read: Interp. by me - X-Ray X-Ray #1 X-Ray: chest Interpretation: Interp. by me X-ray Comments: Mild pulmonary edema. No infiltrate or effusion. Mild cardiomegaly. - Progress/Reassessment Chief Complaint: Dyspnea Progress:: Unchanged Progress Note-Subjective: 06/18/19 05:[address] Garcia he agrees with admission and IV diuresis Departure Clinical Impression: Congestive heart failure Qualifiers: Heart failure type: combined systolic and diastolic Heart failure chronicity: acute on chronic Qualified Code(s): I50.43 - Acute on chronic combined systolic (congestive) and diastolic (congestive) heart failure - Departure Disposition: Still a patient Condition: Fair
[2019-06-18 04:42] LABS: Hematocrit 33.8 % (42.0-52.0); Hemoglobin 10.1 gm/dL (13.5-18.0); Mean Cell Volume 86.9 fl (78-100); Mean Corpuscular Hgb Conc 29.9 g/dl (32-36); Mean Platelet Volume 10.8 fl (8-11.3); Neutrophil # 3.1 K/mm3 (1.3-6.0); Neutrophil % 57.2 % (42-75.0); Platelet Count 150 K/mm3 (150-450); Red Blood Count 3.89 M/mm3 (4.7-6.0); Red Cell Distribution Width 15.6 % (11.5-14.0); White Blood Count 5.5 K/mm3 (4.0-10.5)
[2019-06-18 05:02] LABS: Albumin * 3.4 gm/dl (3.4-5.0); Anion Gap 12.8 mmol/L (6.8-13.8); BUN/Creatinine Ratio 40.3 (9.0-21.6); Bilirubin, Total 0.3 mg/dL (0.0-1.1); Ca. Corrected For Albumin 8.7 mg/dL (8.4-10.2); Calcium * 8.5 mg/dL (7.9-10.9); Carbon Dioxide 26.3 mmol/L (24-32.6); Potassium 4.1 mmol/L (3.4-4.6); Total Protein 6.9 gm/dL (6.2-8.2); Troponin I 0.053 ng/mL (0.00-0.10)
[2019-06-18] MEDS ORDERED: FUROSEMIDE 10 MG/ML VIAL IV ONE (05:33)
[2019-06-18] MEDS ORDERED: hydrOXYzine HCL 25 MG TABLET PO PRN (08:19)
[2019-06-18] MEDS ORDERED: ASPIRIN 81 MG TABLET.DR PO SCH (09:00)
[2019-06-18] MEDS ORDERED: CLOPIDOGREL BISULFATE 75 MG TABLET PO SCH (09:00)
[2019-06-18] MEDS ORDERED: amLODIPine BESYLATE 5 MG TABLET PO SCH (09:00)
[2019-06-18] MEDS ORDERED: SERTRALINE HCL 50 MG TABLET PO SCH (09:00)
[2019-06-18] MEDS ORDERED: LOSARTAN POTASSIUM 50 MG TABLET PO SCH (09:00)
[2019-06-18] MEDS ORDERED: ATENOLOL 50 MG TABLET PO SCH (09:00)
--- NOTE | 2019-06-18 17:01 | HPDIS ---
Chief Complaint - Chief Complaint Date of Service: 06/18/19 Time of Service: 12:30 Chief Complaint: Shortness of breath History of Present Illness: Guille is a 74 yo male with chronic diastolic CHF. He reports over the last week he has been getting more short of breath. She denies any medication change, weight change, or dietary change. He reports avoiding sodium. He has tried staying active and cannot think of any changes that would have caused his shortness of breath. He reports he has been wheezing more lately. He has a non- productive cough. In the ER he was notably short of breath but had no hypoxia. He was given 80mg of IV lasix. At the time of my evaluation he has reportedly diuresed about 1 liter of fluid. Chest xray showed no acute changes. Medical History (Last Reviewed 06/18/19 @ 07:53 by Kylee Albrecht RN) CHF (congestive heart failure) Onset Date: Unknown Aortic aneurysm Onset Date: Unknown CAD (coronary artery disease) Onset Date: Unknown COPD (chronic obstructive pulmonary disease) Onset Date: Unknown Hypercholesteremia Onset Date: Unknown Hypertension Onset Date: Unknown PAD (peripheral artery disease) Onset Date: Unknown Surgical History: Surgical History (Last Reviewed 06/18/19 @ 07:53 by Kylee Albrecht RN) History of cardiac catheterization Onset Date: Unknown history of stent placement Onset Date: Unknown right leg Family History: Family History (Last Reviewed 06/18/19 @ 07:54 by Kylee Albrecht RN) Father Myocardial infarction Other No pertinent family history Social History: (Last Reviewed 06/18/19 @ 07:54 by Kylee Albrecht RN) Social History: adopted: No assisted: No Marital status: household members: spouse number of children: 3 current occupational status: retired Previous occupational history: [employer] Highest education level completed: high school graduate Financial difficulty paying for basics: not very hard Service: No Tobacco: Smoking Status: Never smoker Alcohol: alcohol intake: never Substance Use: substance use type: does not use Dietary Habits: caffeine: Yes Type: coffee, tea Lizz/Sabianism: special lizz needs: No Review Of Systems (GEN) - Review of Systems Generalized/Overall Review: Absent: Weakness, Chills, Fever EENTM: Present: No Symptoms Reported Respiratory: Present: Cough, Shortness of Breath, Wheezing. Absent: Orthopnea Cardiac: Present: Edema. Absent: Chest Pain, Palpitations, Syncope Abdominal: Absent: Nausea, Vomiting Genitourinary: Present: No Symptoms Reported Musculoskeletal: Present: No Symptoms Reported Neurological: Present: No Symptoms Reported Skin: Present: Change in Color - redness to right leg - resolving Immunizations: IMMUNIZATION HX Immunizations Up to Date Yes History of Influenza Vaccine Yes Hx Pneumococcal Vaccination More Information Required Allergies/Adverse Reactions: Allergies Allergy/AdvReac Type Severity Reaction Status Date / Time No Known Drug Allergies Allergy Verified 06/18/19 07:55 Home Medications: HOME MEDICATIONS Aspirin [Aspirin Enteric Coated] 81 mg PO DAILY 03/12/16 [Last Taken 04/15/19] atenolol 50 mg tablet 50 mg PO DAILY #90 tab 08/22/18 [Last Taken 04/15/19] losartan 100 mg tablet 100 mg PO DAILY #90 tab 09/20/18 [Last Taken 04/15/19] Rosuvastatin Calcium [Crestor] 40 mg PO HS 10/05/18 [Last Taken 04/15/19] amlodipine 5 mg tablet 5 mg PO DAILY #90 tab 12/13/18 [Last Taken 04/15/19] Clopidogrel Bisulfate [Plavix] 75 mg PO DAILY 04/17/19 [Last Taken 04/15/19] furosemide 80 mg tablet 80 mg PO DAILY tab 04/25/19 [Last Taken Unknown] hydroxyzine HCl 25 mg tablet 25 mg PO Q8H PRN #90 tab 04/25/19 [Last Taken Unknown] sertraline 50 mg tablet 50 mg PO DAILY #30 tab 04/25/19 [Last Taken Unknown] indomethacin 50 mg capsule 50 - 100 mg PO BID PRN #90 cap 05/02/19 [Last Taken Unknown] Azithromycin [Zithromax] 500 mg PO NOW #6 tab 06/18/19 [Last Taken Unknown] predniSONE [Prednisone] 2 tab PO DAILY #14 tab 06/18/19 [Last Taken Unknown] Exam - Exam Vital Signs: Vital Signs - Last Taken Temp 36.2 C 06/18/19 15:00 Pulse 64 06/18/19 15:00 Resp 18 06/18/19 15:00 BP 109/52 06/18/19 15:00 Pulse Ox 99 06/18/19 15:00 Constitutional: Present: Alert, Oriented x3, Cooperative ENT Exam: Present: hearing grossly normal Eye Exam: bilateral eye: normal inspection Respiratory: Present: wheezing Cardiovascular/Chest: Present: regular rate, rhythm, no murmur Peripheral Pulses: radial (R): 2+, radial (L): 2+ Abdomen: Present: Normal bowel sounds, soft, nontender, nondistended Extremity: Present: lower extremity edema - 2+ in right leg, 1+ in left leg Skin Exam: Present: normal color, warm/dry, no cyanosis Neurologic: Present: alert, normal mood/affect, oriented x 3 Appearance: Present: appropriate appearance, appropriate insight Eye contact: Present: cooperative, good eye contact, normal speech Diagnostic Studies: Abnormal Lab Results 06/18/19 06/18/19 Range/Units 04:35 04:35 RBC 3.89 L (4.7-6.0) M/mm3 Hgb 10.1 L (13.5-18.0) gm/dL Hct 33.8 L (42.0-52.0) % MCH 26.0 L (27-31) pg MCHC 29.9 L (32-36) g/dl RDW 15.6 H (11.5-14.0) % Immature Gran % (Auto) 0.70 H (0.001-0.429) % Immature Gran # (Auto) 0.04 H (0.000-0.0310) K/mm3 Monocytes % 12.1 H (0.0-9) % Eosinophils % 4.8 H (0.0-3.0) % Lymphocytes # 1.34 L (1.5-3.5) k/mm3 BUN 62 H D (6-23) mg/dL Creatinine 1.54 H (0.4-1.4) mg/dL Est GFR (Non-Af Amer) 47 L (60-130) mL/min BUN/Creatinine Ratio 40.3 H (9.0-21.6) Random Glucose 124 H (70-110) mg/dL AST 95 H (0-48) U/L ALT 100 H (19-67) U/L B-Natriuretic Peptide 3482 H (5-650) pg/mL Laboratory Results WBC 5.5 K/mm3 (4.0-10.5) 06/18/19 04:35 RBC 3.89 M/mm3 (4.7-6.0) L 06/18/19 04:35 Hgb 10.1 gm/dL (13.5-18.0) L 06/18/19 04:35 Hct 33.8 % (42.0-52.0) L 06/18/19 04:35 MCV 86.9 fl (78-100) 06/18/19 04:35 MCH 26.0 pg (27-31) L 06/18/19 04:35 MCHC 29.9 g/dl (32-36) L 06/18/19 04:35 RDW 15.6 % (11.5-14.0) H 06/18/19 04:35 Plt Count 150 K/mm3 (150-450) 06/18/19 04:35 MPV 10.8 fl (8-11.3) 06/18/19 04:35 Immature Gran % (Auto) 0.70 % (0.001-0.429) H 06/18/19 04:35 Immature Gran # (Auto) 0.04 K/mm3 (0.000-0.0310) H 06/18/19 04:35 Neutrophils % 57.2 % (42-75.0) 06/18/19 04:35 Lymphocytes % 24.5 % (20-51) 06/18/19 04:35 Monocytes % 12.1 % (0.0-9) H 06/18/19 04:35 Eosinophils % 4.8 % (0.0-3.0) H 06/18/19 04:35 Basophils % 0.7 % (0.0-1.0) 06/18/19 04:35 Nucleated RBC % 0.0 k/mm3 (0-1) 06/18/19 04:35 Neutrophils # 3.1 K/mm3 (1.3-6.0) 06/18/19 04:35 Lymphocytes # 1.34 k/mm3 (1.5-3.5) L 06/18/19 04:35 Monocytes # 0.7 k/mm3 (0.0-1.0) 06/18/19 04:35 Eosinophils # 0.3 k/mm3 (0.0-0.7) 06/18/19 04:35 Absolute Basophils 0.0 k/mm3 (0.0-0.1) 06/18/19 04:35 Sodium 138 mmol/L (132-142) 06/18/19 04:35 Plasma Sodium 138 mmol/L (130-142) 06/18/19 04:35 Potassium 4.1 mmol/L (3.4-4.6) 06/18/19 04:35 Chloride 103 mmol/L (97-106) 06/18/19 04:35 Carbon Dioxide 26.3 mmol/L (24-32.6) 06/18/19 04:35 Anion Gap 12.8 mmol/L (6.8-13.8) 06/18/19 04:35 BUN 62 mg/dL (6-23) H D 06/18/19 04:35 Creatinine 1.54 mg/dL (0.4-1.4) H 06/18/19 04:35 Est GFR (Non-Af Amer) 47 mL/min (60-130) L 06/18/19 04:35 BUN/Creatinine Ratio 40.3 (9.0-21.6) H 06/18/19 04:35 Random Glucose 124 mg/dL (70-110) H 06/18/19 04:35 Calcium 8.5 mg/dL (7.9-10.9) 06/18/19 04:35 Calcium Adj for Albumin 8.7 mg/dL (8.4-10.2) 06/18/19 04:35 Total Bilirubin 0.3 mg/dL (0.0-1.1) 06/18/19 04:35 AST 95 U/L (0-48) H 06/18/19 04:35 ALT 100 U/L (19-67) H 06/18/19 04:35 Alkaline Phosphatase 87 U/L (50-170) 06/18/19 04:35 Troponin I 0.050 ng/mL (0.00-0.10) 06/18/19 10:26 B-Natriuretic Peptide 3482 pg/mL (5-650) H 06/18/19 04:35 Total Protein 6.9 gm/dL (6.2-8.2) 06/18/19 04:35 Albumin 3.4 gm/dl (3.4-5.0) 06/18/19 04:35 Assessment/Plan - Narrative Narrative: Guille is a 74 yo male with shortness of breath that I believe is multifactorial. He has both COPD and chronic diastolic CHF. I believe he is having a mild exacerbation of both of these. Evaluation in the ER showed no significant abnormalities. Chest xray was non-acute, but he did diurese s ignificantly with lasix. On exam his lungs sound more like COPD exacerbation than CHF exacerbation. He will be admitted to observation and his respiratory status will be monitored. He has not required oxygen. If he remains off oxygen and improves clinically he could be discharged to home later today. - Assessment/Plan (1) COPD (chronic obstructive pulmonary disease) Problem: Chronic Qualifiers: COPD type: unspecified COPD (2) Acute on chronic diastolic (congestive) heart failure Problem: Acute (1) COPD (chronic obstructive pulmonary disease) Problem: Chronic Qualifiers: COPD type: COPD with acute exacerbation Qualified Code(s): J44.1 - Chronic obstructive pulmonary disease with (acute) exacerbation (2) Acute on chronic diastolic (congestive) heart failure Problem: Acute Date of Discharge:: 06/18/19 Hospital Course: Guille is a 74 yo male admitted due to significant shortness of breath thought to be primarily from acute on chronic diastolic CHF. He had elevated BNP and diuresed about 1 liter of urine after being given Lasix 80mg via IV. I believe he is also having a mild exacerbation of COPD due to significant shortness of breath and wheezing on exam. He was admitted to observation, but after receiving the lasix and diuresing he was significantly better. He denies shortness of breath and has been ambulating a lot. He would like to go home. There is no significant cause to his exacerbation, due to the amount of wheezing on exam I will treat with COPD exacerbation with azithromycin and prednisone. He will continue his lasix and follow up with me in clinic in a week. Procedures Performed: none Results and Findings: Lab Pending Results 06/18/19 04:35: WBC 5.5, RBC 3.89 L, Hgb 10.1 L, Hct 33.8 L, MCV 86.9, MCH 26.0 L, MCHC 29.9 L, RDW 15.6 H, Plt Count 150, MPV 10.8, Immature Gran % (Auto) 0.70 H, Immature Gran # (Auto) 0.04 H, Neutrophils % 57.2, Lymphocytes % 24.5, Monocytes % 12.1 H, Eosinophils % 4.8 H, Basophils % 0.7, Nucleated RBC % 0.0, Neutrophils # 3.1, Lymphocytes # 1.34 L, Monocytes # 0.7, Eosinophils # 0.3, Absolute Basophils 0.0 06/18/19 04:35: Sodium 138, Plasma Sodium 138, Potassium 4.1, Chloride 103, Carbon Dioxide 26.3, Anion Gap 12.8, BUN 62 H D, Creatinine 1.54 H, Est GFR (Non-Af Amer) 47 L, BUN/Creatinine Ratio 40.3 H, Random Glucose 124 H, Calcium 8.5, Calcium Adj for Albumin 8.7, Total Bilirubin 0.3, AST 95 H, ALT 100 H, Alkaline Phosphatase 87, Troponin I 0.053, B-Natriuretic Peptide 3482 H, Total Protein 6.9, Albumin 3.4 06/18/19 10:26: Troponin I 0.050 Discharge Location: Home Disposition: Home self-care Condition: Fair Discharge Activity: Activity as tolerated Discharge Diet: Low salt Referrals: Maxim Marion DO [Primary Care Provider] - One Week Problem Oriented Discharge Instructions to Patient/Family: CHF Patient Instructions, Chronic Obstructive Pulmonary Disease Exacerbation, [id number] Prescriptions (Any new or edited meds): predniSONE [Prednisone] 2 tab PO DAILY #14 tab Transmission Status: Pending to [id number] Azithromycin [Zithromax] 500 mg PO NOW #6 tab Transmission Status: Pending to [id number] Complete Home Medications List: Complete Home Medication List: Aspirin [Aspirin Enteric Coated] 81 mg PO DAILY 03/12/16 atenolol 50 mg tablet 50 mg PO DAILY #90 tab 08/22/18 losartan 100 mg tablet 100 mg PO DAILY #90 tab 09/20/18 Rosuvastatin Calcium [Crestor] 40 mg PO HS 10/05/18 amlodipine 5 mg tablet 5 mg PO DAILY #90 tab 12/13/18 Clopidogrel Bisulfate [Plavix] 75 mg PO DAILY 04/17/19 furosemide 80 mg tablet 80 mg PO DAILY tab 04/25/19 hydroxyzine HCl 25 mg tablet 25 mg PO Q8H PRN #90 tab 04/25/19 sertraline 50 mg tablet 50 mg PO DAILY #30 tab 04/25/19 indomethacin 50 mg capsule 50 - 100 mg PO BID PRN #90 cap 05/02/19 Azithromycin [Zithromax] 500 mg PO NOW #6 tab 06/18/19 predniSONE [Prednisone] 2 tab PO DAILY #14 tab 06/18/19
[2019-06-18 18:34] VITALS: BP 116/47
[2019-06-18] MEDS ORDERED: ROSUVASTATIN CALCIUM 20 MG TABLET PO SCH (21:00)
== END 2019-06-18 17:40 | disposition home or self-care (01) ==
LOC: ER 04:00 → MS 05:39 → INTOOBSV 05:39 → MS 07:05
PROVIDERS: ADMIT Internal Medicine; ATTEND Family Medicine
CPT/HCPCS: 36415; 71020; 71046; 80053; 83519; 83880; 84484; 85025; 93005; 96374; 99285; G0378

== ENCOUNTER 2019-10-14 16:26 | Observation (INO) ==
[2019-10-14 16:58] LABS: Hematocrit 26.2 % (42.0-52.0); Mean Cell Volume 82.9 fl (78-100); Mean Corpuscular Hemoglobin 24.4 pg (27-31); Mean Corpuscular Hgb Conc 29.4 g/dl (32-36); Mean Platelet Volume 10.7 fl (8-11.3); Neutrophil # 3.7 K/mm3 (1.3-6.0); Neutrophil % 59.7 % (42-75.0); Platelet Count 234 K/mm3 (150-450); Red Blood Count 3.16 M/mm3 (4.7-6.0); Red Cell Distribution Width 16.6 % (11.5-14.0); White Blood Count 6.3 K/mm3 (4.0-10.5)
[2019-10-14 17:02] LABS: Hemoglobin 7.7 gm/dL (13.5-18.0)
[2019-10-14 17:09] LABS: Prothrombin Time (Patient) 12.1 Seconds (9.1-10.7)
[2019-10-14 17:10] LABS: INR 1.23 INR (0.92-1.08); Partial Thrombolplastin Time 26.1 Seconds (24-32)
--- NOTE | 2019-10-14 17:13 | ERNOTE ---
Chest Pain/Cardiac HPI Chief Complaint: Chest Pain Time Seen by Provider: 10/14/19 16:56 Source: patient Exam Limitations: no limitations Immunizations: IMMUNIZATION HX Immunizations Up to Date Yes History of Influenza Vaccine Yes Hx Pneumococcal Vaccination No Allergies/Adverse Reactions: Allergies No Known Drug Allergies Allergy (Verified 10/09/19 14:23) Home Medications: HOME MEDICATIONS Aspirin [Aspirin Enteric Coated] 81 mg PO DAILY 03/12/16 [Last Taken 04/15/19] atenolol 50 mg tablet 50 mg PO DAILY #90 tab 08/22/18 [Last Taken 04/15/19] losartan 100 mg tablet 100 mg PO DAILY #90 tab 09/20/18 [Last Taken 04/15/19] hydroxyzine HCl 25 mg tablet 25 mg PO Q8H PRN #90 tab 04/25/19 [Last Taken Unknown] sertraline 50 mg tablet 50 mg PO DAILY #30 tab 04/25/19 [Last Taken Unknown] indomethacin 50 mg capsule 50 - 100 mg PO BID PRN #90 cap 05/02/19 [Last Taken Unknown] clopidogrel 75 mg tablet 75 mg PO DAILY #90 tab 06/22/19 [Last Taken Unknown] rosuvastatin 40 mg tablet 40 mg PO HS #90 tab 06/22/19 [Last Taken Unknown] allopurinol 100 mg tablet 200 mg PO DAILY #180 tab 09/17/19 [Last Taken Unknown] furosemide 80 mg tablet 80 mg PO DAILY #120 tab 09/28/19 [Last Taken Unknown] mirtazapine 15 mg tablet 15 mg PO HS #30 tab 09/28/19 [Last Taken Unknown] metolazone 5 mg tablet 5 mg PO QWEEK #12 tab 10/10/19 [Last Taken Unknown] Narrative: Patient is here for chest pain. He has a history of coronary artery disease as well as CHF, states that it has been a long time since he last had stents placed or seen a repairer. Today while he was playing golf he started to have chest pressure from about 10 AM through 4 PM. Symptoms improved when he got into his car and drove home. He denies any pain at this point. He states that earlier this month he ran out of his fluid pills for about 9 days, during that time he started to have increased shortness of breath and leg swelling. He has now been back on his medication for about 10 days. He continues to feel fatigued and gets shortness of breath with minimal exert ion. A couple months ago he had a blood transfusion for low hemoglobin, not sure why his count was low, denies any bleeding or black stools Timing: constant, gone now Severity/Quality: mild, pressure Location: central Chest Pain Radiation: arms Activities at Onset: activity Modifying Factors - Improves: Present: rest Modifying Factors - Worsens: Present: rest Aspirin Treatment Today: provided at home Associated Symptoms: Present: shortness of breath. Absent: headache, diaphoresis, fever/chills Prior Chest Pain/Cardiac Workup: Reports: prior chest pain Prior Treatment: Denies: recently seen, currently on antibiotics Review of Systems - Review of Systems Constitutional: Present: fatigue, malaise. Absent: recent illness, fever ENT: Absent: nose congestion, sore throat Respiratory: Present: See HPI, shortness of breath, stridor. Absent: cough Cardiology: Present: chest pain Gastrointestinal/Abdominal: Absent: nausea, abdominal pain Genitourinary: Present: no symptoms reported Musculoskeletal: Absent: back pain Neurological: Absent: headache Medical History (Last Reviewed 10/14/19 @ 17:10 by Lyssa Ruiz MD) Hyperlipidemia (Chronic) Acute on chronic diastolic (congestive) heart failure (Resolved) Onset Date: 03/15/16 Heart murmur (Acute) Onset Date: 10/18/18 Acute on chronic diastolic (congestive) heart failure (Resolved) Onset Date: 04/17/19 Aortic aneurysm (Chronic) Onset Date: Unknown PAD (peripheral artery disease) (Chronic) Onset Date: Unknown COPD (chronic obstructive pulmonary disease) (Chronic) Onset Date: Unknown CHF (congestive heart failure) (Chronic) Onset Date: Unknown Hypercholesteremia (Chronic) Onset Date: Unknown Hypertension (Chronic) Onset Date: Unknown CAD (coronary artery disease) (Chronic) Onset Date: Unknown Elevated troponin Onset Date: 03/14/16 Elevated troponin I level Onset Date: 03/14/16 Epistaxis Onset Date: 04/04/16 Leukocytosis Onset Date: 03/14/16 Cellulitis of leg without foot, right Onset Date: 05/25/19 Surgical History: Surgical History (Last Reviewed 10/14/19 @ 17:11 by Lyssa Ruiz MD) History of cardiac catheterization Onset Date: Unknown history of stent placement Onset Date: Unknown right leg Family History: Family History (Last Reviewed 10/14/19 @ 16:34 by Katerin Mills RN) Father Myocardial infarction Other No pertinent family history Social History: (Last Reviewed 10/14/19 @ 16:34 by Katerin Mills RN) Social History: adopted: No penitentiary: No Marital status: household members: spouse number of children: 3 current occupational status: retired Previous occupational history: [employer] Highest education level completed: high school graduate Financial difficulty paying for basics: not very hard Service: No Tobacco: Smoking Status: Never smoker Alcohol: alcohol intake: never Substance Use: substance use type: does not use Dietary Habits: caffeine: Yes Type: coffee, tea Lizz/Yazidi: special lizz needs: No Physical Exam - Physical Exam General Appearance: Present: wd/wn, alert, no apparent distress, obese Respiratory: Present: no respiratory distress, no accessory muscle use, lungs clear, decreased breath sounds Cardiovascular/Chest: Present: regular rate, rhythm, systolic murmur Gastrointestinal/Abdominal: Present: normal bowel sounds, nontender, soft, distended Extremity Exam: Present: pedal edema Neurological Exam: Present: alert, oriented, normal mood/affect Skin Exam: Present: warm/dry, pallor Progress - Results and Orders Patient's Lab Results:: I have reviewed the patient's lab results. - Vital Signs Patient's Vital Signs:: I have reviewed the patient's vital signs. Vital Signs: Vital Signs 10/14/19 16:30 Temperature 36.7 C Pulse Rate 68 Respiratory Rate 16 Blood Pressure 92/59 O2 Sat by Pulse Oximetry 97 - EKG EKG #1 EKG: NSR, ST depression - II, III, aVF, V4-6, seem more pronounced thatn on EKG from 06/18/19 EKG read: Interp. by me - X-Ray X-Ray #1 X-Ray: chest - cardiomegalie, small bilateral pleural effusions, no infiltrate Interpretation: Interp. by me, Reviewed by me - Progress/Reassessment Chief Complaint: Chest Pain Progress Note-Subjective: 10/14/19 17:38 discussed test results with patient, offered admission, patient agreed denies any source of bleeding or black stools 10/14/19 17:[address] Leigh, trevoray to admit for observation, transfused two units of RBCs Departure Clinical Impression: Chest pain Qualifiers: Chest pain type: unspecified Qualified Code(s): R07.9 - Chest pain, unspecified Anemia Qualifiers: Anemia type: unspecified type Qualified Code(s): D64.9 - Anemia, unspecified Renal failure (ARF), acute on chronic Qualifiers: Acute renal failure type: unspecified Chronic kidney disease stage: unspecified stage Qualified Code(s): N17.9 - Acute kidney failure, unspecified - Departure Disposition: Still a patient Condition: Stable
[2019-10-14 17:16] LABS: Albumin * 3.1 gm/dl (3.4-5.0); Anion Gap 9.4 mmol/L (6.8-13.8); BUN/Creatinine Ratio 35.7 (9.0-21.6); Bilirubin, Total 0.5 mg/dL (0.0-1.1); Ca. Corrected For Albumin 8.7 mg/dL (8.4-10.2); Calcium * 8.3 mg/dL (7.9-10.9); Carbon Dioxide 32.7 mmol/L (24-32.6); Potassium 4.1 mmol/L (3.4-4.6); Total Protein 6.4 gm/dL (6.2-8.2)
[2019-10-14 17:17] LABS: Troponin I 0.031 ng/mL (0.00-0.10)
[2019-10-14] MEDS ORDERED: ACETAMINOPHEN 500 MG TABLET PO PRN (20:38)
[2019-10-14] MEDS ORDERED: FUROSEMIDE 40 MG TABLET PO SCH ×2 (20:45→21:05)
--- NOTE | 2019-10-14 21:24 | HP ---
Chief Complaint - Chief Complaint Date of Service: 10/14/19 Time of Service: 21:06 Chief Complaint: I have had shortness of breath and chest pressure since this morning. History of Present Illness: 74-year-old male with past medical history of COPD, diastolic CHF, coronary artery disease with stents, CKD, diverticulosis, anemia was evaluated in the ER for worsening shortness of breath and chest pressure that started earlier this afternoon while the patient played golf. Patient reports he was recently seen by his PCP for his shortness of breath and his diuretics were increased, however his shortness of breath continues to get worse despite taking the medication as prescribed. Patient also reports worsening pedal edema in both feet and heaviness in his lower extremities. He said he went to bed in his usual state of health last night but he became more symptomatic as the day went on. [place] he reports feeling pressure in his chest that he describes as a heaviness that he radiated down his arms, he then decided to go home and says his symptoms got better when he got in his car to drive. However they returned once he arrived home and he became concerned enough to come to the ER. Once in the ER the patient had a full work-up that included an EKG which demonstrated ST depressions which were present on a previous EKG but more accentuated on the current one and labs demonstrated a significantly elevated BNP. Patient denied chest pain at that time and is troponins were negative, follow-up troponins were scheduled for this evening. Patient also had increase in his creatinine and BUN indicating an acute kidney injury superimposed on his chronic kidney disease. He also had a hemoglobin of 7.7 despite receiving blood several weeks ago according to the patient. When asked the patient is not sure what causes anemia but review of his previous visits demonstrate a diagnosis of diverticulosis discovered on double contrast barium enema done several months ago. However the patient denies any rectal bleeding or dark stools. Physical exam was negative for any abdominal tenderness or other abdominal abnormalities. He was also discovered to have bilateral 2+ pedal edema however his lungs were clear. Medical History (Last Reviewed 10/14/19 @ 19:06 by Aliya Chopra RN) Hyperlipidemia (Chronic) Acute on chronic diastolic (congestive) heart failure (Resolved) Onset Date: 03/15/16 Heart murmur (Acute) Onset Date: 10/18/18 Acute on chronic diastolic (congestive) heart failure (Resolved) Onset Date: 04/17/19 Aortic aneurysm (Chronic) Onset Date: Unknown PAD (peripheral artery disease) (Chronic) Onset Date: Unknown COPD (chronic obstructive pulmonary disease) (Chronic) Onset Date: Unknown CHF (congestive heart failure) (Chronic) Onset Date: Unknown Hypercholesteremia (Chronic) Onset Date: Unknown Hypertension (Chronic) Onset Date: Unknown CAD (coronary artery disease) (Chronic) Onset Date: Unknown Elevated troponin Onset Date: 03/14/16 Elevated troponin I level Onset Date: 03/14/16 Epistaxis Onset Date: 04/04/16 Leukocytosis Onset Date: 03/14/16 Cellulitis of leg without foot, right Onset Date: 05/25/19 Surgical History: Surgical History (Last Reviewed 10/14/19 @ 19:06 by Aliya Chopra RN) History of cardiac catheterization Onset Date: Unknown history of stent placement Onset Date: Unknown right leg Family History: Family History (Last Reviewed 10/14/19 @ 19:06 by Aliya Chopra RN) Father Myocardial infarction Other No pertinent family history Social History: (Last Reviewed 10/14/19 @ 19:07 by Aliya Chopra RN) Social History: adopted: No alf: No Marital status: household members: spouse number of children: 3 current occupational status: retired Previous occupational history: [employer] Highest education level completed: high school graduate Financial difficulty paying for basics: not very hard Service: No Tobacco: Smoking Status: Never smoker Alcohol: alcohol intake: never Substance Use: substance use type: does not use Dietary Habits: caffeine: Yes Type: coffee, tea Lizz/Roman Catholic: special lizz needs: No Peds Patient Hx - Developmental: No Pertinent Hx Peds Patient Hx - Medical: No Pertinent Hx Peds Patient Hx - Cardiac/Respiratory: No Pertinent Hx Peds Patient Hx - Surgical: No Surgical History Patient History - Cancer: No Hx of Cancer Review Of Systems (GEN) - Review of Systems Generalized/Overall Review: Present: No Symptoms Reported EENTM: Present: No Symptoms Reported Respiratory: Present: Shortness of Breath Cardiac: Present: Chest Pain, Edema - Bilateral pedal edema Abdominal: Present: No Symptoms Reported Genitourinary: Present: No Symptoms Reported Musculoskeletal: Present: No Symptoms Reported Neurological: Present: No Symptoms Reported Skin: Present: No Symptoms Reported Endocrine: Present: No Symptoms Reported Immunizations: IMMUNIZATION HX Immunizations Up to Date Yes History of Influenza Vaccine Yes Hx Pneumococcal Vaccination No Allergies/Adverse Reactions: Allergies Allergy/AdvReac Type Severity Reaction Status Date / Time No Known Drug Allergies Allergy Verified 10/09/19 14:23 Home Medications: HOME MEDICATIONS Aspirin [Aspirin Enteric Coated] 81 mg PO DAILY 03/12/16 [Last Taken 10/14/19] atenolol 50 mg tablet 50 mg PO DAILY #90 tab 08/22/18 [Last Taken 10/14/19] losartan 100 mg tablet 100 mg PO DAILY #90 tab 09/20/18 [Last Taken 10/14/19] clopidogrel 75 mg tablet 75 mg PO DAILY #90 tab 06/22/19 [Last Taken 10/14/19] rosuvastatin 40 mg tablet 40 mg PO HS #90 tab 06/22/19 [Last Taken 10/13/19] Furosemide [Lasix] 20 mg PO DAILY 10/14/19 [Last Taken 10/14/19] Exam - Exam Vital Signs: Vital Signs - Last Taken Temp 36.9 C 10/14/19 20:22 Pulse 70 10/14/19 20:22 Resp 18 10/14/19 20:22 BP 100/41 10/14/19 20:22 Pulse Ox 97 10/14/19 20:22 Constitutional: Present: Alert, Oriented x3, Cooperative, Well developed, Well nourished, No distress, Elderly, Obese ENT Exam: Present: normal ENT inspection, hearing grossly normal, pharynx normal, TMs normal Eye Exam: bilateral eye: normal inspection, PERRL, EOMI Neck: Present: non-tender, full range of motion, supple, normal inspection, trachea midline Back Exam: Present: normal inspection, no CVA tenderness, no vertebral tenderness Breasts: Present: Exam deferred Respiratory: Present: chest non-tender, lungs clear, normal breath sounds, no respiratory distress, no accessory muscle use Cardiovascular/Chest: Present: regular rate, rhythm, no chest tenderness, no gallop, no JVD, systolic murmur, edema - Bilateral 2+ pedal edema Abdomen: Present: Normal bowel sounds, soft, nontender, nondistended, no rebound tenderness, no hepatospenomegaly, no masses, obese /Rectal: Present: Exam deferred Extremity: Present: normal range of motion, non-tender, no calf tenderness, normal capillary refill, pelvis stable, pedal edema, swelling Skin Exam: Present: normal color, warm/dry, no cyanosis Lymphatic: Present: no adenopathy Neurologic: Present: gear design engineer II-XII nml as tested, no motor/sensory deficits, alert, normal mood/affect, oriented x 3, other - Apparent dysarthria Appearance: Present: appropriate appearance, appropriate insight, neat, no memory impairment Eye contact: Present: cooperative, good eye contact, other - Dysarthria Thoughts: Present: normal thought pattern, no apparent hallucination Diagnostic Studies: Abnormal Lab Results 10/14/19 10/14/19 10/14/19 Range/Units 16:49 16:49 16:49 RBC 3.16 L (4.7-6.0) M/mm3 Hgb 7.7 L* D (13.5-18.0) gm/dL Hct 26.2 L (42.0-52.0) % MCH 24.4 L (27-31) pg MCHC 29.4 L (32-36) g/dl RDW 16.6 H (11.5-14.0) % Lymphocytes % 19.5 L (20-51) % Monocytes % 11.0 H (0.0-9) % Eosinophils % 8.9 H (0.0-3.0) % Lymphocytes # 1.22 L (1.5-3.5) k/mm3 PT 12.1 H (9.1-10.7) Seconds INR (Anticoag Therapy) 1.23 H (0.92-1.08) INR Carbon Dioxide 32.7 H (24-32.6) mmol/L BUN 99 H D (6-23) mg/dL Creatinine 2.77 H D (0.4-1.4) mg/dL Est GFR (Non-Af Amer) 24 L D (60-130) mL/min BUN/Creatinine Ratio 35.7 H (9.0-21.6) AST 51 H (0-48) U/L B-Natriuretic Peptide (5-650) pg/mL Albumin 3.1 L (3.4-5.0) gm/dl Crossmatch 10/14/19 10/14/19 Range/Units 16:49 18:24 RBC (4.7-6.0) M/mm3 Hgb (13.5-18.0) gm/dL Hct (42.0-52.0) % MCH (27-31) pg MCHC (32-36) g/dl RDW (11.5-14.0) % Lymphocytes % (20-51) % Monocytes % (0.0-9) % Eosinophils % (0.0-3.0) % Lymphocytes # (1.5-3.5) k/mm3 PT (9.1-10.7) Seconds INR (Anticoag Therapy) (0.92-1.08) INR Carbon Dioxide (24-32.6) mmol/L BUN (6-23) mg/dL Creatinine (0.4-1.4) mg/dL Est GFR (Non-Af Amer) (60-130) mL/min BUN/Creatinine Ratio (9.0-21.6) AST (0-48) U/L B-Natriuretic Peptide 3093 H (5-650) pg/mL Albumin (3.4-5.0) gm/dl Crossmatch See Detail Laboratory Results WBC 6.3 K/mm3 (4.0-10.5) 10/14/19 16:49 RBC 3.16 M/mm3 (4.7-6.0) L 10/14/19 16:49 Hgb 7.7 gm/dL (13.5-18.0) L* D 10/14/19 16:49 Hct 26.2 % (42.0-52.0) L 10/14/19 16:49 MCV 82.9 fl (78-100) 10/14/19 16:49 MCH 24.4 pg (27-31) L 10/14/19 16:49 MCHC 29.4 g/dl (32-36) L 10/14/19 16:49 RDW 16.6 % (11.5-14.0) H 10/14/19 16:49 Plt Count 234 K/mm3 (150-450) 10/14/19 16:49 MPV 10.7 fl (8-11.3) 10/14/19 16:49 Immature Gran % (Auto) 0.30 % (0.001-0.429) 10/14/19 16:49 Immature Gran # (Auto) 0.02 K/mm3 (0.000-0.0310) 10/14/19 16:49 Neutrophils % 59.7 % (42-75.0) 10/14/19 16:49 Lymphocytes % 19.5 % (20-51) L 10/14/19 16:49 Monocytes % 11.0 % (0.0-9) H 10/14/19 16:49 Eosinophils % 8.9 % (0.0-3.0) H 10/14/19 16:49 Basophils % 0.6 % (0.0-1.0) 10/14/19 16:49 Nucleated RBC % 0.0 k/mm3 (0-1) 10/14/19 16:49 Neutrophils # 3.7 K/mm3 (1.3-6.0) 10/14/19 16:49 Lymphocytes # 1.22 k/mm3 (1.5-3.5) L 10/14/19 16:49 Monocytes # 0.7 k/mm3 (0.0-1.0) 10/14/19 16:49 Eosinophils # 0.6 k/mm3 (0.0-0.7) 10/14/19 16:49 Absolute Basophils 0.0 k/mm3 (0.0-0.1) 10/14/19 16:49 PT 12.1 Seconds (9.1-10.7) H 10/14/19 16:49 INR (Anticoag Therapy) 1.23 INR (0.92-1.08) H 10/14/19 16:49 PTT (Bridget) 26.1 Seconds (24-32) 10/14/19 16:49 Sodium 140 mmol/L (132-142) 10/14/19 16:49 Plasma Sodium 140 mmol/L (130-142) 10/14/19 16:49 Potassium 4.1 mmol/L (3.4-4.6) 10/14/19 16:49 Chloride 102 mmol/L (97-106) 10/14/19 16:49 Carbon Dioxide 32.7 mmol/L (24-32.6) H 10/14/19 16:49 Anion Gap 9.4 mmol/L (6.8-13.8) 10/14/19 16:49 BUN 99 mg/dL (6-23) H D 10/14/19 16:49 Creatinine 2.77 mg/dL (0.4-1.4) H D 10/14/19 16:49 Est GFR (Non-Af Amer) 24 mL/min (60-130) L D 10/14/19 16:49 BUN/Creatinine Ratio 35.7 (9.0-21.6) H 10/14/19 16:49 Random Glucose 96 mg/dL (70-110) 10/14/19 16:49 Calcium 8.3 mg/dL (7.9-10.9) 10/14/19 16:49 Calcium Adj for Albumin 8.7 mg/dL (8.4-10.2) 10/14/19 16:49 Total Bilirubin 0.5 mg/dL (0.0-1.1) 10/14/19 16:49 AST 51 U/L (0-48) H 10/14/19 16:49 ALT 45 U/L (19-67) 10/14/19 16:49 Alkaline Phosphatase 75 U/L (50-170) 10/14/19 16:49 Troponin I 0.031 ng/mL (0.00-0.10) 10/14/19 16:49 B-Natriuretic Peptide 3093 pg/mL (5-650) H 10/14/19 16:49 Total Protein 6.4 gm/dL (6.2-8.2) 10/14/19 16:49 Albumin 3.1 gm/dl (3.4-5.0) L 10/14/19 16:49 Blood Type A Positive 10/14/19 18:24 Antibody Screen Negative 10/14/19 18:24 Crossmatch See Detail 10/14/19 18:24 Assessment/Plan - Narrative Narrative: Patient was evaluated and medical chart was reviewed and decision to admit for diagnosis of decompensated CHF, hypotension, PRERNA on CKD, anemia was made. Given the patient's low hemoglobin transfusion of 2 PRBCs were ordered we will administer Lasix in between units to avoid fluid overload given the patient's history of CHF. Will also be treated with IV diuretics to induce diuresis in order to address his decompensated CHF. However we will have to watch him closely while diuresing him given his hypotension and his fragile state. He was placed on a stallion keeper and strict input and output with daily weights were ordered in order to monitor for adequate diuresis. All antihypertensives were held in the meantime given his ongoing hypotension. - Assessment/Plan (1) Heart failure, chronic, with acute decompensation Problem: Acute Qualifiers: Heart failure type: diastolic Qualified Code(s): I50.33 - Acute on chronic diastolic (congestive) heart failure (2) Acute kidney injury superimposed on CKD Problem: Acute (3) COPD (chronic obstructive pulmonary disease) Problem: Chronic (4) Anemia Problem: Acute (5) Diverticular disease Problem: Chronic (6) Hypotension Problem: Acute
[2019-10-14] MEDS: ROSUVASTATIN CALCIUM 20 MG TABLET PO SCH (23:49)
[2019-10-14] MEDS: PANTOPRAZOLE SODIUM 40 MG in NORMAL SALINE 100 ML IV SCH (23:50)
--- NOTE | 2019-10-15 00:39 | PN ---
Progess Note - Interim Date: 10/15/19 Time: 00:14 Narrative: 10/15/19 00:14 I was alerted by polysomnographic tech of a critical Troponin of 0.16 which is an increase from the one done on admission. I ordered EKG to be done which showed ST depressions in several leads. manager lan Washcloth Folder at [facility] was consulted on the phone and he said there was not much to be done from a cardiology standpoint, it was likely a NSTEMI caused by increased cardiac demand and the decompensation of the px's CHF. The clinical picture is further complicated by worsening renal function/PRERNA. He agreed with the plan of treating the px with IV Diuretics and the transfusion of PRBCs but also recommended a nephro consult to evaluate kidneys. Px has stable vitals and denies chest pain at the moment. He is tolerating transfusion without any issues. We will continue to monitor him closely. I will also consult the hospitalist construction controller at [facility]. 10/15/19 00:38
[2019-10-15 07:34] LABS: Hematocrit 31.4 % (42.0-52.0); Hemoglobin 9.5 gm/dL (13.5-18.0); Mean Cell Volume 82.8 fl (78-100); Mean Corpuscular Hemoglobin 25.1 pg (27-31); Mean Corpuscular Hgb Conc 30.3 g/dl (32-36); Mean Platelet Volume 10.5 fl (8-11.3); Neutrophil # 4.2 K/mm3 (1.3-6.0); Neutrophil % 61.7 % (42-75.0); Platelet Count 230 K/mm3 (150-450); Red Blood Count 3.79 M/mm3 (4.7-6.0); Red Cell Distribution Width 16.2 % (11.5-14.0); White Blood Count 6.7 K/mm3 (4.0-10.5)
[2019-10-15 07:50] LABS: Albumin * 3.3 gm/dl (3.4-5.0); Anion Gap 10.5 mmol/L (6.8-13.8); BUN/Creatinine Ratio 36.5 (9.0-21.6); Bilirubin, Total 0.9 mg/dL (0.0-1.1); Ca. Corrected For Albumin 9.1 mg/dL (8.4-10.2); Calcium * 8.9 mg/dL (7.9-10.9); Carbon Dioxide 30.6 mmol/L (24-32.6); Potassium 4.1 mmol/L (3.4-4.6); Total Protein 6.6 gm/dL (6.2-8.2)
[2019-10-15] MEDS: ASPIRIN 81 MG TABLET.DR PO SCH (08:16)
[2019-10-15] MEDS: CLOPIDOGREL BISULFATE 75 MG TABLET PO SCH (08:16)
[2019-10-15] MEDS: FUROSEMIDE 20 MG TABLET PO SCH ×2 (08:16→20:21)
--- NOTE | 2019-10-15 11:21 | PN ---
Subjective - Date and Time Seen Date: 10/15/19 Time: 10:52 Subjective Narrative: I feel better, my shortness of breath is improving. Objective Objective Narrative: 74-year-old male with past medical history of coronary artery disease with stent placement, chronic kidney disease, diastolic CHF, diverticular disease, hyperlipidemia, obesity, COPD, and anemia of chronic disease was evaluated at bedside and was found to be afebrile and in no acute distress. Patient tolerated the transfusion of 2 units of PRBC without any issues and has been treated with IV diuretics which has helped his symptoms. This morning he appears stronger and is ambulating around his room without any observable dyspnea. Patient also reports improvement in his shortness of breath compared to when he arrived to the hospital. Elevated troponin was reported last night which indicates an increase compared to the first one which was negative. It is likely the patient had a type II myocardial infarction due to increased demand secondary to his unexplained anemia. While going through the patient's records it became clear that he has a history of anemia of chronic disease that kept his baseline hemoglobin between 9 and 10 however for an unexplainable reason, his hemoglobin dropped down to 7.6. The complete ACS protocol could not be administered due to contraindications for nitrates, beta-blockers, and LOUIS inhibitors due to the fact that the patient was hypotensive and had unstable vitals. At one point his MAP dropped down to 60 further complicating the situation. The medical nurse as well as the hospitalist special education math teacher at [facility] were contacted last night when the critical troponin was reported and both physicians agreed that the cardiac ischemia is most likely due to the anemia and not obstruction of the coronary arteries. The medical nurse stated that it is likely the patient had a NSTEMI but from a cardiology standpoint there was not much they could do and that management would have to be done by a skilled hospitalist to address the CHF and acute kidney injury superimposed on CKD. The hospitalist agreed to the management and treatment plan that was ordered on admission. Therefore decision to keep the patient at [facility] to continue blood transfusion and treatment with serial IV diuretics to promote diuresis was made. After it was confirmed that the patient did not have any active bleeding, he was kept on dual antiplatelet therapy with Plavix and aspirin which he has been taking for multiple years. Thankfully the patient tolerated the management without any issues and shows clinical improvement this morning. He has had adequate diuresis in response to the diuretics and his vitals are stable. He still remains hypotensive but has an adequate MAP. Labs done this morning demonstrate a mild improvement in his renal function and his hemoglobin has increased to above 9 which is around his baseline. Patient continues to deny any signs or symptoms of bleeding such as black stools or blood in the stools. We will keep him on telemetry and continue to monitor him. Everything was discussed thoroughly with the patient and he was informed that his CHF and renal function are most likely worsening, he was also told that he has unexplained anemia which probably led to all this. We discussed the possibility of transferring him to [facility] where he could be evaluated by nephrology and cardiology, however he opted to stay at [facility] and wait to see his PCP in the morning to continue his management. Given that the patient is currently stable and is showing clinical improvement we will keep him here at our facility for now. - Review of Systems Generalized/Overall Review: Reports: No Symptoms Reported EENTM: Reports: No Symptoms Reported Respiratory: Reports: Shortness of Breath Cardiac: Reports: Edema Abdominal: Reports: No Symptoms Reported Genitourinary Symptoms: Reports: No Symptoms Reported Musculoskeletal Complaints: Reports: No Symptoms Reported Neurological: Reports: No Symptoms Reported Skin: Reports: No Symptoms Reported Endocrine: Reports: No Symptoms Reported - Vitals Vitals: Last Vital Signs Temp 36.4 C 10/15/19 10:00 Pulse 69 10/15/19 10:00 Resp 20 10/15/19 10:00 BP 108/50 10/15/19 10:00 Pulse Ox 95 10/15/19 10:00 - Abnormal Lab Findings Abnormal Lab Findings: Abnormal Lab Results 10/14/19 10/14/19 10/14/19 Range/Units 16:49 16:49 16:49 RBC 3.16 L (4.7-6.0) M/mm3 Hgb 7.7 L* D (13.5-18.0) gm/dL Hct 26.2 L (42.0-52.0) % MCH 24.4 L (27-31) pg MCHC 29.4 L (32-36) g/dl RDW 16.6 H (11.5-14.0) % Lymphocytes % 19.5 L (20-51) % Monocytes % 11.0 H (0.0-9) % Eosinophils % 8.9 H (0.0-3.0) % Lymphocytes # 1.22 L (1.5-3.5) k/mm3 PT 12.1 H (9.1-10.7) Seconds INR (Anticoag Therapy) 1.23 H (0.92-1.08) INR Carbon Dioxide 32.7 H (24-32.6) mmol/L BUN 99 H D (6-23) mg/dL Creatinine 2.77 H D (0.4-1.4) mg/dL Est GFR (Non-Af Amer) 24 L D (60-130) mL/min BUN/Creatinine Ratio 35.7 H (9.0-21.6) Random Glucose (70-110) mg/dL AST 51 H (0-48) U/L Troponin I (0.00-0.10) ng/mL B-Natriuretic Peptide (5-650) pg/mL Albumin 3.1 L (3.4-5.0) gm/dl Crossmatch 10/14/19 10/14/19 10/14/19 Range/Units 16:49 18:24 22:40 RBC (4.7-6.0) M/mm3 Hgb (13.5-18.0) gm/dL Hct (42.0-52.0) % MCH (27-31) pg MCHC (32-36) g/dl RDW (11.5-14.0) % Lymphocytes % (20-51) % Monocytes % (0.0-9) % Eosinophils % (0.0-3.0) % Lymphocytes # (1.5-3.5) k/mm3 PT (9.1-10.7) Seconds INR (Anticoag Therapy) (0.92-1.08) INR Carbon Dioxide (24-32.6) mmol/L BUN (6-23) mg/dL Creatinine (0.4-1.4) mg/dL Est GFR (Non-Af Amer) (60-130) mL/min BUN/Creatinine Ratio (9.0-21.6) Random Glucose (70-110) mg/dL AST (0-48) U/L Troponin I 0.162 H* (0.00-0.10) ng/mL B-Natriuretic Peptide 3093 H (5-650) pg/mL Albumin (3.4-5.0) gm/dl Crossmatch See Detail 10/15/19 10/15/19 Range/Units 07:20 07:20 RBC 3.79 L (4.7-6.0) M/mm3 Hgb 9.5 L (13.5-18.0) gm/dL Hct 31.4 L (42.0-52.0) % MCH 25.1 L (27-31) pg MCHC 30.3 L (32-36) g/dl RDW 16.2 H (11.5-14.0) % Lymphocytes % 18.0 L (20-51) % Monocytes % 9.1 H (0.0-9) % Eosinophils % 10.3 H (0.0-3.0) % Lymphocytes # 1.21 L (1.5-3.5) k/mm3 PT (9.1-10.7) Seconds INR (Anticoag Therapy) (0.92-1.08) INR Carbon Dioxide (24-32.6) mmol/L BUN 99 H (6-23) mg/dL Creatinine 2.71 H (0.4-1.4) mg/dL Est GFR (Non-Af Amer) 25 L (60-130) mL/min BUN/Creatinine Ratio 36.5 H (9.0-21.6) Random Glucose 129 H D (70-110) mg/dL AST (0-48) U/L Troponin I (0.00-0.10) ng/mL B-Natriuretic Peptide (5-650) pg/mL Albumin 3.3 L (3.4-5.0) gm/dl Crossmatch - Exam Constitutional: Present: Alert, Oriented x3, Cooperative, Well developed, Well nourished, No distress, Elderly ENT Exam: Present: normal ENT inspection, hearing grossly normal, pharynx nor mal, TMs normal Neck: Present: non-tender, full range of motion, supple, normal inspection, trachea midline Breasts: Present: Exam deferred Respiratory: Present: chest non-tender Cardiovascular/Chest: Present: regular rate, rhythm, no chest tenderness, no gallop, no JVD, no rub, systolic murmur, other - Bilateral 1+ pedal edema Abdomen: Present: Normal bowel sounds, soft, nontender, nondistended, no rebound tenderness, no hepatospenomegaly, no masses, obese /Rectal: Present: Exam deferred Extremity: Present: normal range of motion, non-tender, normal inspection, no calf tenderness, normal capillary refill, pelvis stable, pedal edema Skin Exam: Present: normal color, warm/dry, no cyanosis Lymphatic: Present: no adenopathy Neurologic: Present: meat puller II-XII nml as tested, no motor/sensory deficits, alert, normal mood/affect, oriented x 3 Appearance: Present: appropriate appearance, appropriate insight, neat, no me umesh impairment Eye contact: Present: cooperative, good eye contact, normal speech Thoughts: Present: normal thought pattern Assessment/Plan Plan Narrative: There are additional doses of IV diuretics to be administered, follow-up labs were ordered for tomorrow morning to evaluate electrolytes and renal function. - Problems/Diagnosis (1) Heart failure, chronic, with acute decompensation Problem: Acute Qualifiers: Heart failure type: diastolic Qualified Code(s): I50.33 - Acute on chronic diastolic (congestive) heart failure (2) Acute kidney injury superimposed on CKD Problem: Acute (3) COPD (chronic obstructive pulmonary disease) Problem: Chronic (4) Anemia Problem: Acute Qualifiers: Anemia type: due to chronic kidney disease (5) Diverticular disease Problem: Chronic (6) Hypotension Problem: Acute
[2019-10-15] MEDS: ROSUVASTATIN CALCIUM 20 MG TABLET PO SCH (20:21)
[2019-10-15] MEDS: PANTOPRAZOLE SODIUM 40 MG in NORMAL SALINE 100 ML IV SCH (20:21)
[2019-10-16 06:52] LABS: Albumin * 3.4 gm/dl (3.4-5.0); BUN/Creatinine Ratio 36.8 (9.0-21.6); Bilirubin, Total 0.7 mg/dL (0.0-1.1); Calcium * 8.8 mg/dL (7.9-10.9); Total Protein 6.8 gm/dL (6.2-8.2)
--- NOTE | 2019-10-16 08:21 | DS ---
(1) Acute on chronic diastolic (congestive) heart failure Problem: Resolved (2) Anemia in chronic kidney disease Problem: Acute Qualifiers: Chronic kidney disease stage: stage 4 (severe) Qualified Code(s): N18.4 - Chronic kidney disease, stage 4 (severe); D63.1 - Anemia in chronic kidney disease (3) Elevated troponin Problem: Acute (4) Acute kidney injury superimposed on CKD Problem: Acute Date of Discharge:: 10/16/19 Hospital Course: Guille is a 74 yo male with Chronic Diastolic CHF, Chronic Kidney disease that ranges from stage 3 to 4, and anemia of chronic kidney disease. Hemoglobin had significantly dropped to 7.7 and he was significantly short of breath. He also had increased weight and acute on chronic diastolic CHF. He was treated with 2 units of pRBCs and Lasix. He clinically improved with this treatment. He also had serial troponins that were mildly elevated and likely secondary to demand and renal dysfunction. His troponin was stable, creatinine improved near his baseline, and hemoglobin improved from 7 to 9. He clinically felt much better and was ready for home discharge. Will plan to have him establish with nephrology for chronic kidney disease and anemia of chronic disease. Procedures Performed: none Results and Findings: Lab Pending Results 10/14/19 16:49: WBC 6.3, RBC 3.16 L, Hgb 7.7 L* D, Hct 26.2 L, MCV 82.9, MCH 24.4 L, MCHC 29.4 L, RDW 16.6 H, Plt Count 234, MPV 10.7, Immature Gran % (Auto) 0.30, Immature Gran # (Auto) 0.02, Neutrophils % 59.7, Lymphocytes % 19.5 L, Monocytes % 11.0 H, Eosinophils % 8.9 H, Basophils % 0.6, Nucleated RBC % 0.0, Neutrophils # 3.7, Lymphocytes # 1.22 L, Monocytes # 0.7, Eosinophils # 0.6, Absolute Basophils 0.0 10/14/19 16:49: Sodium 140, Plasma Sodium 140, Potassium 4.1, Chloride 102, Carbon Dioxide 32.7 H, Anion Gap 9.4, BUN 99 H D, Creatinine 2.77 H D, Est GFR (Non-Af Amer) 24 L D, BUN/Creatinine Ratio 35.7 H, Random Glucose 96, Calcium 8.3, Calcium Adj for Albumin 8.7, Total Bilirubin 0.5, AST 51 H, ALT 45, A lkaline Phosphatase 75, Troponin I 0.031, Total Protein 6.4, Albumin 3.1 L 10/14/19 16:49: PT 12.1 H, INR (Anticoag Therapy) 1.23 H, PTT (Bridget) 26.1 10/14/19 16:49: B-Natriuretic Peptide 3093 H 10/14/19 18:24: Blood Type A Positive, Antibody Screen Negative, Crossmatch See Detail 10/14/19 22:40: Troponin I 0.162 H* 10/15/19 07:20: Sodium 139, Plasma Sodium 139, Potassium 4.1, Chloride 102, Carbon Dioxide 30.6, Anion Gap 10.5, BUN 99 H, Creatinine 2.71 H, Est GFR (Non- Af Amer) 25 L, BUN/Creatinine Ratio 36.5 H, Random Glucose 129 H D, Calcium 8.9, Calcium Adj for Albumin 9.1, Total Bilirubin 0.9, AST 46, ALT 46, Alkaline Phosphatase 67, Total Protein 6.6, Albumin 3.3 L 10/15/19 07:20: WBC 6.7, RBC 3.79 L, Hgb 9.5 L, Hct 31.4 L, MCV 82.8, MCH 25.1 L, MCHC 30.3 L, RDW 16.2 H, Plt Count 230, MPV 10.5, Immature Gran % (Auto) 0.30, Immature Gran # (Auto) 0.02, Neutrophils % 61.7, Lymphocytes % 18.0 L, Monocytes % 9.1 H, Eosinophils % 10.3 H, Basophils % 0.6, Nucleated RBC % 0.0, Neutrophils # 4.2, Lymphocytes # 1.21 L, Monocytes # 0.6, Eosinophils # 0.7, Absolute Basophils 0.0 10/16/19 06:30: Sodium 138, Plasma Sodium 139, Potassium 4.0, Chloride 99, Carbon Dioxide 30.0, Anion Gap 13.0, BUN 88 H, Creatinine 2.39 H, Est GFR (Non- Af Amer) 28 L, BUN/Creatinine Ratio 36.8 H, Random Glucose 181 H D, Calcium 8.8, Calcium Adj for Albumin 9.0, Total Bilirubin 0.7, AST 46, ALT 43, Alkaline Phosphatase 76, B-Natriuretic Peptide 2592 H, Total Protein 6.8, Albumin 3.4 10/16/19 06:30: Troponin I 0.172 H* Discharge Location: Home Disposition: Home self-care Condition: Stable Discharge Activity: Activity as tolerated Discharge Diet: Low salt Referrals: Maxim Marion DO [Primary Care Provider] - (Keep scheduled appointment this week) Meliton Maddox MD [Non Staff Physicians] - (Establish with [facility], next available (Chronic Kidney Disease, Anemia of Chronic Disease)) Problem Oriented Discharge Instructions to Patient/Family: CHF Patient Instructions, Chronic Kidney Disease, Adult, [id number] Prescriptions (Any new or edited meds): Furosemide [Lasix] 60 mg PO DAILY #135 tab Transmission Status: Pending to [id number] Complete Home Medications List: Complete Home Medication List: Aspirin [Aspirin Enteric Coated] 81 mg PO DAILY 03/12/16 atenolol 50 mg tablet 50 mg PO DAILY #90 tab 08/22/18 losartan 100 mg tablet 100 mg PO DAILY #90 tab 09/20/18 clopidogrel 75 mg tablet 75 mg PO DAILY #90 tab 06/22/19 rosuvastatin 40 mg tablet 40 mg PO HS #90 tab 06/22/19 Furosemide [Lasix] 60 mg PO DAILY #135 tab 10/16/19 Forms: Patient Portal Registration
[2019-10-16] MEDS: CLOPIDOGREL BISULFATE 75 MG TABLET PO SCH (08:30)
[2019-10-16] MEDS: ASPIRIN 81 MG TABLET.DR PO SCH (08:30)
[2019-10-16 10:13] VITALS: BP 139/60
== END 2019-10-16 10:50 | disposition home or self-care (01) ==
LOC: ER 16:26 → MS 16:26
PROVIDERS: ADMIT Family Medicine; ATTEND Family Medicine
DX: R79.89 Other specified abnormal findings of blood chemistry; I25.10 Atherosclerotic heart disease of native coronary artery without angina pectoris; I50.33 Acute on chronic diastolic (congestive) heart failure; N17.9 Acute kidney failure, unspecified; N18.4 Chronic kidney disease, stage 4 (severe); D63.1 Anemia in chronic kidney disease; I13.0 Hypertensive heart and chronic kidney disease with heart failure and stage 1 through stage 4 chronic kidney disease, or unspecified chronic kidney disease
CPT/HCPCS: 36415; 36430; 71020; 71046; 80053; 83519; 83880; 84484; 85025; 85610; 85730; 86850; 93005; 96365; 96366; 99284; 99285; P9016